=== PATIENT | male | born 1960 | race Caucasian/White ===

== ENCOUNTER 2018-06-14 10:02 | Emergency (ER) | payer BC, OTHER ==
[2018-06-14] MEDS ORDERED: BABY ASPIRIN 81 MG CHEW PO ONE (10:28)
--- NOTE | 2018-06-14 10:34 | ERPHSYRPT ---
- History of Present Illness Time Seen by Provider: 06/14/18 10:23 Historian: patient Exam Limitations: no limitations Patient Subjective Stated Complaint: HTN, tight chest on left side that radiates to the left neck Triage Nursing Assessment: Pt reports his chest began hurting last night and continues today, BP 177/111, been smoking a lot more and drinking a lot every day for the past couple of weeks, hadn't drank for the past 14 months, pt stated that he is under a lot of stress that is not work related lately, +1 edema to bilateral lower extremities, lungs clear, S1-S2 heard, tachycardic, upper left chest feels tight with some pain radiating to the left side of neck Physician History: 58-year-old white male with history of high blood pressure, hyperlipidemia. Patient arrives with complaint of pain in his left upper chest described as a pressure which began last night at 10:00. No nausea no vomiting he did have some shortness of breath last night none today. Patient apparently presented at a local clinic and was referred here he was noted to have elevated blood pressure. Past medical history includes high blood pressure hyperlipidemia patient also with arthritis. Past surgical history includes bilateral knee surgery and left hip surgery. Social history positive tobacco use, history of alcohol abuse in the past apparently states he usually didn't drink but drank about 4 beers last night. Timing/Duration: yesterday (10 PM last night) Activities at Onset: none Quality: pressure Severity of Pain-Max: moderate (3 out of 10 last night) Severity of Pain-Current: mild (1 out of 10 today) Modifying Factors: Improves With: nothing Associated Symptoms: shortness of breath (short of breath last night), No nausea , No vomiting, No palpitations, No heartburn, No abdominal pain, No cough, No hurts to breathe, No diaphoresis, No chills, No fever, No fatigue, No weakness, No swelling/lump in chest, No syncope, No rash, No headache, No dizziness, No edema, No back pain Prior Chest Pain/Cardiac Workup: no prior chest pain Nitro Today/Relief: no nitro taken today Aspirin Treatment Today: 81 mg x 4, provided by ED Allergies/Adverse Reactions: No Known Drug Allergies Allergy (Unverified 06/14/18 10:25) Home Medications: Etodolac 400 mg [Lodine 400 mg] 400 mg PO DAILY 06/14/18 [History] Lisinopril 5 mg [Zestril 5 MG] 5 mg PO DAILY 06/14/18 [History] - Review of Systems Constitutional: No Fever, No Chills Eyes: No Symptoms Ears, Nose, & Throat: No Symptoms Respiratory: Dyspnea (Short of breath last night), No Cough Cardiac: Chest Pain, No Edema, No Syncope Abdominal/Gastrointestinal: No Abdominal Pain, No Nausea, No Vomiting, No Diarrhea Genitourinary Symptoms: No Dysuria Musculoskeletal: No Back Pain, No Neck Pain Skin: No Rash Neurological: No Dizziness, No Focal Weakness, No Sensory Changes Psychological: No Symptoms Endocrine: No Symptoms All Other Systems: Reviewed and Negative - Past Medical History Pertinent Past Medical History: Yes Cardiac History: High Cholesterol, Hypertension Respiratory History: COPD Musculoskeletal History: Osteoarthritis - Past Surgical History Past Surgical History: Yes Musculoskeletal: Joint Replacement, Orthopedic Surgery Other Surgical History: Left hip replacement, bilateral knees partial replacement, left foot surgery, left elbow - Social History Smoking Status: Current every day smoker How long have you smoked: 30 years Exposure to second hand smoke: Yes Drug Use: none Patient Lives Alone: No - Nursing Vital Signs Nursing Vital Signs: Initial Vital Signs Temperature 97.8 F 06/14/18 10:05 Pulse Rate 105 H 06/14/18 10:05 Blood Pressure 177/111 06/14/18 10:05 O2 Sat by Pulse Oximetry 94 L 06/14/18 10:05 Pain Scale Pain Intensity 2 - Physical Exam General Appearance: no apparent distress, alert Eye Exam: PERRL/EOMI, eyes nml inspection Ears, Nose, Throat Exam: normal ENT inspection, moist mucous membranes Neck Exam: normal inspection, non-tender, supple, full range of motion Respiratory Exam: normal breath sounds, lungs clear, No respiratory distress Cardiovascular Exam: regular rate/rhythm, normal heart sounds, capillary refill <2 sec Gastrointestinal/Abdomen Exam: soft, No tenderness, No mass Back Exam: normal inspection, No CVA tenderness, No vertebral tenderness Extremity Exam: normal inspection, normal range of motion Neurologic Exam: alert, oriented x 3, 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, 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 Negative pulmonary Embolus. No acute cardiopulmonary abnormalities 2. Pulmonary emphysema, fibrosis/scarring, and evidence for old granulomatous disease. 3. Fatty liver.) Ordered Tests: Active Orders 24 hr Category Date Time Status [employer] [facility] STAT Care 06/14/18 10:28 Active EKG-ER Only STAT Care 06/14/18 10:28 Active IV Insertion STAT Care 06/14/18 10:28 Active Pulse Oximetry (ED) STAT Care 06/14/18 10:28 Active CHEST 1 VIEW (PORTABLE) Stat Exams 06/14/18 10:28 Completed CHEST WITH CONTRAST [CT] Stat Exams 06/14/18 11:17 Completed AMYLASE Stat Lab 06/14/18 10:30 Completed CBC W DIFF Stat Lab 06/14/18 10:30 Completed CMP Stat Lab 06/14/18 10:30 Completed D-DIMER QUANTITATION Stat Lab 06/14/18 10:30 Completed LIPASE Stat Lab 06/14/18 10:30 Completed TROPONIN Q3H Lab 06/14/18 10:30 Completed TROPONIN Q3H Lab 06/14/18 13:40 Completed TROPONIN Q3H Lab 06/14/18 16:30 Ordered TROPONIN Q3H Lab 06/14/18 19:30 Ordered TROPONIN Q3H Lab 06/14/18 22:30 Ordered Medication Summary Discontinued Medications Generic Name Dose Route Start Last Admin Trade Name Freq PRN Reason Stop Dose Admin Aspirin 324 mg 06/14/18 10:28 06/14/18 10:33 Baby Aspirin 81 Mg Chew PO 06/14/18 10:29 324 mg STAT ONE Administration Lab/Rad Data: Laboratory Result Diagrams 06/14/18 10:30 06/14/18 10:30 Laboratory Results 06/14/18 06/14/18 06/14/18 Range/Units 13:40 10:30 10:30 WBC (4.0-10.5) K/mm3 RBC (4.1-5.6) M/mm3 Hgb (12.5-18.0) gm/dl Hct (42-50) % MCV (78-100) fl MCH (26-32) pg MCHC (32-36) g/dl RDW (11.5-14.0) % Plt Count (150-450) K/mm3 MPV (6-9.5) fl Gran % (36.0-66.0) % Eos # (Auto) (0-0.5) Absolute Lymphs (auto) (1.0-4.6) Absolute Monos (auto) (0.0-1.3) Lymphocytes % (24.0-44.0) % Monocytes % (0.0-12.0) % Eosinophils % (0.00-5.0) % Basophils % (0.0-0.4) % Absolute Granulocytes (1.4-6.9) Basophils # (0-0.4) D-Dimer 609 H* (215-500) ng/mL Sodium (137-145) mmol/L Potassium (3.5-5.1) mmol/L Chloride (98-107) mmol/L Carbon Dioxide (22-30) mmol/L Anion Gap (5-15) MEQ/L BUN (9-20) mg/dL Creatinine (0.66-1.25) mg/dL Estimated GFR ML/MIN Glucose (74-106) mg/dL Calcium (8.4-10.2) mg/dL Total Bilirubin (0.2-1.3) mg/dL AST (17-59) U/L ALT (0-50) U/L Alkaline Phosphatase (38-126) U/L Troponin I < 0.012 < 0.012 (0.000-0.034) ng/mL Serum Total Protein (6.3-8.2) g/dL Albumin (3.5-5.0) g/dL Amylase (30-110) U/L Lipase (23-300) U/L 06/14/18 06/14/18 Range/Units 10:30 10:30 WBC 6.2 (4.0-10.5) K/mm3 RBC 4.74 (4.1-5.6) M/mm3 Hgb 15.7 (12.5-18.0) gm/dl Hct 46.3 (42-50) % MCV 97.7 (78-100) fl MCH 33.1 H (26-32) pg MCHC 33.9 (32-36) g/dl RDW 15.4 H (11.5-14.0) % Plt Count 216 (150-450) K/mm3 MPV 9.7 H (6-9.5) fl Gran % 61.0 (36.0-66.0) % Eos # (Auto) 0.07 (0-0.5) Absolute Lymphs (auto) 1.60 (1.0-4.6) Absolute Monos (auto) 0.71 (0.0-1.3) Lymphocytes % 25.9 (24.0-44.0) % Monocytes % 11.5 (0.0-12.0) % Eosinophils % 1.1 (0.00-5.0) % Basophils % 0.5 (0.0-0.4) % Absolute Granulocytes 3.77 (1.4-6.9) Basophils # 0.03 (0-0.4) D-Dimer (215-500) ng/mL Sodium 136 L (137-145) mmol/L Potassium 4.0 (3.5-5.1) mmol/L Chloride 102 (98-107) mmol/L Carbon Dioxide 25 (22-30) mmol/L Anion Gap 13.1 (5-15) MEQ/L BUN 9 (9-20) mg/dL Creatinine 0.70 (0.66-1.25) mg/dL Estimated GFR > 60.0 ML/MIN Glucose 106 (74-106) mg/dL Calcium 9.4 (8.4-10.2) mg/dL Total Bilirubin 1.00 (0.2-1.3) mg/dL AST 28 (17-59) U/L ALT 22 (0-50) U/L Alkaline Phosphatase 88 (38-126) U/L Troponin I (0.000-0.034) ng/mL Serum Total Protein 7.4 (6.3-8.2) g/dL Albumin 4.2 (3.5-5.0) g/dL Amylase 119 H (30-110) U/L Lipase 108 (23-300) U/L - Progress Progress: improved Air Movement: fair Progress Note: 06/14/18 10:33 58-year-old white male with history of hypercholesterolemia high blood pressure arrives with complaint of pain in his left upper chest described as a tightness or pressure began last night at 10:00 he said rated at 3 out of 10 last night 1 out of 10 tonight he states he was short of breath last night he was noted to have elevated blood pressure by the clinic. Patient arrived with a blood pressure 177/111 is now spontaneously come down to 146/95. Will go ahead and run EKG CBC CMP troponin d-dimer chest x-ray. Patient is given aspirin 324 mg orally. 06/14/18 12:36 CTA chest no evidence of pulmonary embolism, positive for fatty liver. Patient's other labs essentially normal. Will plan to repeat troponin 3 hours after last draw. Blood pressure remaining stable. 06/14/18 14:22 Patient's repeat troponin within normal limits blood pressures improved patient in no acute distress will discharge. - Departure Departure Disposition: Home Clinical Impression: Non-cardiac chest pain Condition: Fair Critical Care Time: No Referrals: VLAD XIE [Primary Care Provider] - Additional Instructions: Return home. Tylenol every 4 hours as needed for pain. Medications as prescribed by your family doctor. Follow-up with your family doctor call and make an appointment. Return for acute distress or for severe symptoms.
[2018-06-14 10:46] LABS: BASOPHIL % 0.5 % (0.0-0.4); Basophil (Absolute #) 0.03 (0-0.4); Eosinophil % 1.1 % (0.00-5.0); Eosinophil (Absolute #) 0.07 (0-0.5); Granulocyte Absolute (ANC) 3.77 (1.4-6.9); Hematocrit 46.3 % (42-50); Hemoglobin 15.7 gm/dl (12.5-18.0); Lymphocytes % 25.9 % (24.0-44.0); Mean Cell Volume 97.7 fl (78-100); Mean Corpuscular Hemoglobin 33.1 pg (26-32); Mean Corpuscular Hgb Concent. 33.9 g/dl (32-36); Mean Platelet Volume 9.7 fl (6-9.5); Monocyte (Absolute #) 0.71 (0.0-1.3); Monocytes % 11.5 % (0.0-12.0); Platelet Count 216 K/mm3 (150-450); Red Blood Count 4.74 M/mm3 (4.1-5.6); Red Cell Distribution Width 15.4 % (11.5-14.0); White Blood Count 6.2 K/mm3 (4.0-10.5)
--- NOTE | 2018-06-14 10:48 | XRAY ---
Indication: Chest pain. Comparison: April 02, 2009. Portable chest again hyperinflated and clear with incidental calcified granulomas. Heart and mediastinal structures within normal limits. Bony thorax intact again with mild degenerative changes. Impression: Stable nonacute hyperinflated chest with chronic features.
[2018-06-14 11:06] LABS: ALBUMIN 4.2 g/dL (3.5-5.0); ALKALINE PHOSPHATASE 88 U/L (38-126); AMYLASE 119 U/L (30-110); ANION GAP 13.1 MEQ/L (5-15); BLOOD UREA NITROGEN 9 mg/dL (9-20); CHLORIDE 102 mmol/L (98-107); Calcium 9.4 mg/dL (8.4-10.2); Carbon Dioxide 25 mmol/L (22-30); Glucose 106 mg/dL (74-106); LIPASE 108 U/L (23-300); SGOT/AST 28 U/L (17-59); SGPT/ALT 22 U/L (0-50); SODIUM 136 mmol/L (137-145); Total Protein 7.4 g/dL (6.3-8.2)
--- NOTE | 2018-06-14 12:31 | XRAY ---
Indication: Chest pain. Elevated d-dimer. Multiple contiguous axial images obtained through the chest using 100 cc Isovue 370 contrast and PE protocol. Comparison: None There is adequate opacification of the pulmonary arteries to include the lobar and segmental branches. No filling defect or pulmonary embolus. Heart is not enlarged. Aorta is normal in course and caliber. Tiny mediastinal/ hilar calcified nodes. No pathologic mediastinal/hilar lymphadenopathy. Examination of lung parenchyma demonstrates moderate diffuse pulmonary emphysema, minimal scattered fibrosis/scarring, mild bilateral dependent atelectasis, and left upper lobe calcified granuloma. No suspicious pulmonary mass, infiltrate, or effusion. Bony thorax intact with mild flowing osteophytes throughout the spine. Limited upper abdomen demonstrates mild diffuse fatty liver. Impression: 1. Negative pulmonary embolus. No acute cardiopulmonary abnormalities. 2. Pulmonary emphysema, fibrosis/scarring, and evidence for old granulomatous disease. 3. Fatty liver. CT DI 16.34
[2018-06-14 14:26] VITALS: BP 121/86; PULSE 75; O2SAT 97
== END 2018-06-14 14:31 | disposition home or self-care (01) ==
LOC: ED 10:02
DX: R07.89 Other chest pain (principal); I10 Essential (primary) hypertension; E78.00 Pure hypercholesterolemia, unspecified; J44.9 Chronic obstructive pulmonary disease, unspecified; M19.90 Unspecified osteoarthritis, unspecified site; K76.0 Fatty (change of) liver, not elsewhere classified
CPT/HCPCS: 36000; 36415; 71045; 71260; 80053; 82150; 83690; 84484; 85025; 85379; 93005; 93041; 99284; A9270-GY

== ENCOUNTER 2018-08-08 01:58 | Emergency (ER) | payer BC, OTHER ==
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
[2018-08-08 04:36] VITALS: BP 135/91; PULSE 85; O2SAT 95
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
== END 2018-08-08 04:43 | disposition home or self-care (01) ==
LOC: ED 01:58
DX: S20.319A Abrasion of unspecified front wall of thorax, initial encounter (principal); S60.212A Contusion of left wrist, initial encounter; V57.5XXA Driver of pick-up truck or van injured in collision with fixed or stationary object in traffic accident, initial encounter; W22.10XA Striking against or struck by unspecified automobile airbag, initial encounter; Y92.410 Unspecified street and highway as the place of occurrence of the external cause
CPT/HCPCS: 36415; 70450; 71045; 80307; 93005; 99285; G0480

== ENCOUNTER 2023-12-15 06:07 | Day surgery (SDC) | payer MEDICARE, OTHER ==
[2023-12-15 06:35] VITALS: RESP 18
[2023-12-15] MEDS: Lactated Ringers 1,000 ML IV SCH (06:45)
[2023-12-15] MEDS ORDERED: Xylocaine-Mpf 2% 5 Ml Vial ONE (08:14)
[2023-12-15] MEDS ORDERED: DIPRIVAN 200 MG/20 ML IV ONE (08:14)
[2023-12-15 08:34] VITALS: TEMP 99
[2023-12-15 08:45] VITALS: O2SAT 95
[2023-12-15 08:50] VITALS: BP 144/100; PULSE 91
--- NOTE | 2023-12-16 11:05 | OP ---
SURGERY DATE/TIME: 12/15/2023 [id number] PREOPERATIVE DIAGNOSIS: Abdominal pain and bloating. POSTOPERATIVE DIAGNOSIS: Gastritis. PROCEDURE: Esophagogastroduodenoscopy with cold forceps biopsy of the gastric antrum. SURGEON: Landon Coates MD. ANESTHESIA: Medications given by the anesthesia department. HISTORY: The patient is a 63-year-old white male who presents now for endoscopic evaluation for complaints of abdominal pain and bloating. The patient does not take any nonsteroidal medicines and reports that he is using Nexium on a regular basis. On further questioning of the patient's significant other, it is discovered the patient uses alcohol basically all day long, beer and hard liquor as well. The patient was described risks of the procedure including risk of perforation, phlebitis, untoward reaction to medication, bleeding, and missed lesions. The patient verbalized her understanding and desired to have the procedure performed. DESCRIPTION OF PROCEDURE: Patient was given medication by the anesthesia department. He had continuous pulse oximetry, ECG monitoring, and intermittent blood pressure monitoring during the examination. He was placed in the left lateral decubitus position. A bite block was placed, and a flexible Olympus gastroscope was used to intubate the oropharynx. A view of the larynx was obtained and was normal. The scope was easily introduced in the esophagus which appeared to be normal throughout its length. The stomach was entered where normal gastric rugal folds were seen. These distended nicely with insufflation of air. There was noted to be some moderate erythema through the gastric antrum. The pylorus was encountered and intubated. Duodenum was inspected and found to be normal. The scope was withdrawn towards the stomach. Retroflexed view was obtained of the lesser curvature, fundus, and cardia regions of the stomach, which appeared to be essentially normal. The scope was then redirected towards the gastric antrum where biopsies were obtained using the cold forceps biopsies of the antrum to rule out the presence of Helicobacter pylori-type organisms. The scope was then removed from the patient who tolerated the procedure well and was sent back to outpatient recovery in good condition.
== END 2023-12-15 08:55 | disposition home or self-care (01) ==
LOC: SDC 06:07
PROVIDERS: ATTEND Family Medicine
DX: K29.70 Gastritis, unspecified, without bleeding (principal); R10.9 Unspecified abdominal pain; R14.0 Abdominal distension (gaseous)
CPT/HCPCS: J2704

== ENCOUNTER 2024-05-10 04:34 | Observation (INO) | payer MEDICARE, OTHER ==
[2024-05-10] MEDS ORDERED: NITRO-BID 2% UD PACKETS ONE (05:12)
[2024-05-10] MEDS ORDERED: BABY ASPIRIN 81 MG CHEW ONE (05:12)
[2024-05-10] MEDS: NITRO-BID 2% UD PACKETS TOP ONE (05:13)
[2024-05-10] MEDS: BABY ASPIRIN 81 MG CHEW PO ONE (05:13)
--- NOTE | 2024-05-10 05:14 | ERPHSYRPT ---
- History of Present Illness Time Seen by Provider: 05/10/24 05:09 Historian: patient Exam Limitations: no limitations Patient Subjective Stated Complaint: c/o chest pain and shortness of breath Triage Nursing Assessment: patient brought into ED by with c/o chest pain and shortness of breath. patient states that the chest pain has been going on for the past couple days and has woke him up from his sleep. rates pain 4/10, Patient is 92% on RA, states he has had a cough for a few weeks, wheezing heard on inspirationa dn expiration throughout. S1 and S2 heard, skin w/n/d, hypertensive, pulses normal, gait steady, bowel sounds present in all 4 quads Physician History: 63-year-old male, smoker, history of hypertension presents to emergency department for evaluation of chest pain and shortness of breath that has been intermittent for the past 4 days. Patient states the pain wakes him from his sleep. Chest pain tends to radiate to his left arm and elbow. Symptoms are mild to moderate in intensity. No specific worsening or improving factors. Patient voices no other complaints or concerns at this time. Portions of this note were created with voice recognition technology. There may be grammatical, spelling, punctuation or sound alike errors. Timing/Duration: today Activities at Onset: none Quality: aching Location: substernal Chest Pain Radiation: arm Severity of Pain-Max: moderate Severity of Pain-Current: mild Modifying Factors: Improves With: nothing Associated Symptoms: shortness of breath Prior Chest Pain/Cardiac Workup: no prior chest pain Nitro Today/Relief: no nitro taken today Aspirin Treatment Today: no aspirin today Allergies/Adverse Reactions: atorvastatin Allergy (Mild, Verified 05/10/24 04:37) Hives metformin Allergy (Verified 05/10/24 04:37) Hives Home Medications: Carvedilol [Coreg ] 6.25 mg PO BID 12/07/23 [History] Furosemide 20 mg [Lasix 20 mg] 20 mg PO DAILY 12/07/23 [History] Losartan Potassium 50 mg [Cozaar 50 MG] 50 mg PO DAILY 12/07/23 [History] Albuterol Sulfate [Proair Respiclick] 90 mcg IH DAILY PRN PRN 05/10/24 [History] Hx Tetanus, Diphtheria Vaccination/Date Given: No Hx Influenza Vaccination/Date Given: No Hx Pneumococcal Vaccination/Date Given: No Travel Risk - International Travel Have you traveled outside of the country in past 3 weeks: No - Emerging Infectious Disease Are you exhibiting symptoms associated with any current EIDs: Yes Symptoms: Shortness of Breath - Review of Systems Constitutional: No Symptoms, No Fever, No Chills Eyes: No Symptoms Ears, Nose, & Throat: No Symptoms Respiratory: No Symptoms, No Cough, No Dyspnea Cardiac: No Symptoms, No Chest Pain, No Edema, No Syncope Abdominal/Gastrointestinal: No Symptoms, No Abdominal Pain, No Nausea, No Vomiting, No Diarrhea Genitourinary Symptoms: No Symptoms, No Dysuria Musculoskeletal: No Symptoms, No Back Pain, No Neck Pain Skin: No Symptoms, No Rash Neurological: No Symptoms, No Dizziness, No Focal Weakness, No Sensory Changes Psychological: No Symptoms Endocrine: No Symptoms Hematologic/Lymphatic: No Symptoms Immunological/Allergic: No Symptoms All Other Systems: Reviewed and Negative - Past Medical History Pertinent Past Medical History: Yes Neurological History: No Pertinent History ENT History: No Pertinent History Cardiac History: High Cholesterol, Hypertension Respiratory History: COPD Endocrine Medical History: No Pertinent History Musculoskeletal History: Osteoarthritis GI Medical History: No Pertinent History History: No Pertinent History Psycho-Social History: No Pertinent History Male Reproductive Disorders: No Pertinent History - Past Surgical History Past Surgical History: Yes Neuro Surgical History: No Pertinent History Cardiac: No Pertinent History Respiratory: No Pertinent History Gastrointestinal: No Pertinent History Genitourinary: No Pertinent History Musculoskeletal: Joint Replacement, Orthopedic Surgery Male Surgical History: No Pertinent History Other Surgical History: Left hip replacement, bilateral knees partial replacement, left foot surgery, left elbow, carpal tunnel, rotator cuff on the left - Social History Smoking Status: Current every day smoker Exposure to second hand smoke: No Drug Use: none - Social Determinants of Health Will the patient participate in the screening: Declined to provide - Nursing Vital Signs Nursing Vital Signs: Initial Vital Signs Pulse Rate 90 05/10/24 04:35 Respiratory Rate 30 H 05/10/24 04:35 Blood Pressure 156/128 05/10/24 04:35 O2 Sat by Pulse Oximetry 92 L 05/10/24 04:35 Pain Scale Pain Intensity 4 - Physical Exam General Appearance: no apparent distress, alert Eye Exam: PERRL/EOMI, eyes nml inspection Ears, Nose, Throat Exam: normal ENT inspection, moist mucous membranes Neck Exam: normal inspection, non-tender, supple, full range of motion Respiratory Exam: normal breath sounds, lungs clear, airway intact, No respiratory distress Cardiovascular Exam: regular rate/rhythm, normal heart sounds Gastrointestinal/Abdomen Exam: soft, No tenderness, No mass Back Exam: normal inspection, No CVA tenderness, No vertebral tenderness Extremity Exam: normal inspection, normal range of motion Neurologic Exam: alert, oriented x 3, cooperative, normal mood/affect, sensation nml, No motor deficits Skin Exam: normal color, warm, dry Lymphatic Exam: No adenopathy SpO2 Interpretation: normal SpO2: 92 O2 Delivery: Room Air - Course Nursing assessment & vital signs reviewed: Yes EKG Interpreted by Me: RATE (92), Sinus Rhythm, NORMAL AXIS, NORMAL INTERVALS, NORMAL QRS Ordered Tests: Active Orders 24 hr Category Date Time Status Cutter In STAT Care 05/10/24 05:08 Active EKG-ER Only STAT Care 05/10/24 04:58 Active IV Insertion STAT Care 05/10/24 04:58 Active Pulse Oximetry (ED) STAT Care 05/10/24 05:06 Active CHEST WITH CONTRAST [CT] Stat Exams 05/10/24 05:43 Taken CBC W DIFF Stat Lab 05/10/24 04:40 Completed CMP Stat Lab 05/10/24 04:40 Completed D-DIMER QUANTITATIVE Stat Lab 05/10/24 04:40 Completed NT PRO BNPII Stat Lab 05/10/24 04:40 Completed TROPONIN Q4H Lab 05/10/24 04:40 Completed TROPONIN Q4H Lab 05/10/24 09:15 Ordered TROPONIN Q4H Lab 05/10/24 13:15 Ordered UA W/RFX UR CULTURE Stat Lab 05/10/24 06:41 Ordered Medication Summary Discontinued Medications Generic Name Dose Route Start Last Admin Trade Name Freq PRN Reason Stop Dose Admin Aspirin 324 mg 05/10/24 05:08 05/10/24 05:13 Aspirin 81 Mg Tab.Chew PO 05/10/24 05:09 324 mg STAT ONE Administration Aspirin Confirm 05/10/24 05:12 Aspirin 81 Mg Tab.Chew Administered 05/10/24 05:13 Dose 324 mg .ROUTE .STK-MED ONE Nitroglycerin 1 gm 05/10/24 05:08 05/10/24 05:13 Nitroglycerin 1 Gm Packet TOP 05/10/24 05:09 1 gm STAT ONE Administration Nitroglycerin Confirm 05/10/24 05:12 Nitroglycerin 1 Gm Packet Administered 05/10/24 05:13 Dose 1 gm .ROUTE .ST-MED ONE Lab/Rad Data: Laboratory Result Diagrams 05/10/24 04:40 05/10/24 04:40 Laboratory Results 05/10/24 05/10/24 05/10/24 Range/Units 04:40 04:40 04:40 WBC (4.23-9.07) x10^3/uL RBC (4.63-6.08) x10^6/uL Hgb (13.7-17.5) g/dL Hct (40.1-51.0) % MCV (79.0-92.2) fL MCH (25.7-32.2) pg MCHC (32.3-36.5) g/dL RDW (11.6-14.4) % Plt Count (163-337) x10^3/uL MPV (9.4-12.4) fL Gran % (34.0-67.9) % Immature Gran % (Auto) (0.001-0.429) % Nucleat RBC Rel Count (0.00-0.2) % Eos # (Auto) (0.04-0.54) x10^3/uL Immature Gran # (Auto) (0.001-0.031) x10^3u/L Absolute Lymphs (auto) (1.32-3.57) x10^3/uL Absolute Monos (auto) (0.30-0.82) x10^3/uL Absolute Nucleated RBC (0.00-0.012) x10^3u/L Lymphocytes % (21.8-53.1) % Monocytes % (5.3-12.2) % Eosinophils % (0.8-7.0) % Basophils % (0.2-1.2) % Absolute Granulocytes (1.78-5.38) x10^3/uL Basophils # (0.01-0.08) x10^3/uL D-Dimer 0.80 H* (0.0-0.50) mg/L Sodium 136 (135-145) mmol/L Potassium 4.2 (3.5-5.1) mmol/L Chloride 100 (98-107) mmol/L Carbon Dioxide 29 (22-30) mmol/L Anion Gap 11.2 (5-15) MEQ/L BUN 9 (9-20) mg/dL Creatinine 0.57 L (0.66-1.25) mg/dL Estimated GFR 110.9 ML/MIN Glucose 150 H (74-106) mg/dL Calcium 8.8 (8.4-10.2) mg/dL Total Bilirubin 0.50 (0.2-1.3) mg/dL AST 39 (17-59) U/L ALT 34 (0-50) U/L Alkaline Phosphatase 68 (38-126) U/L Troponin I < 0.012 (0.000-0.033) ng/mL NT-Pro-B Natriuret Pep 173 (<300) pg/mL Serum Total Protein 7.7 (6.3-8.2) g/dL Albumin 4.1 (3.5-5.0) g/dL / Range/Units 04:40 WBC 5.7 (4.23-9.07) x10^3/uL RBC 5.14 (4.63-6.08) x10^6/uL Hgb 16.5 (13.7-17.5) g/dL Hct 49.2 (40.1-51.0) % MCV 95.7 H (79.0-92.2) fL MCH 32.1 (25.7-32.2) pg MCHC 33.5 (32.3-36.5) g/dL RDW 13.4 (11.6-14.4) % Plt Count 262 (163-337) x10^3/uL MPV 9.8 (9.4-12.4) fL Gran % 26.5 L (34.0-67.9) % Immature Gran % (Auto) 0.2 (0.001-0.429) % Nucleat RBC Rel Count 0.0 (0.00-0.2) % Eos # (Auto) 0.35 (0.04-0.54) x10^3/uL Immature Gran # (Auto) 0.01 (0.001-0.031) x10^3u/L Absolute Lymphs (auto) 3.12 (1.32-3.57) x10^3/uL Absolute Monos (auto) 0.62 (0.30-0.82) x10^3/uL Absolute Nucleated RBC 0.00 (0.00-0.012) x10^3u/L Lymphocytes % 55.0 H (21.8-53.1) % Monocytes % 10.9 (5.3-12.2) % Eosinophils % 6.2 (0.8-7.0) % Basophils % 1.2 (0.2-1.2) % Absolute Granulocytes 1.50 L (1.78-5.38) x10^3/uL Basophils # 0.07 (0.01-0.08) x10^3/uL D-Dimer (0.0-0.50) mg/L Sodium (135-145) mmol/L Potassium (3.5-5.1) mmol/L Chloride (98-107) mmol/L Carbon Dioxide (22-30) mmol/L Anion Gap (5-15) MEQ/L BUN (9-20) mg/dL Creatinine (0.66-1.25) mg/dL Estimated GFR ML/MIN Glucose (74-106) mg/dL Calcium (8.4-10.2) mg/dL Total Bilirubin (0.2-1.3) mg/dL AST (17-59) U/L ALT (0-50) U/L Alkaline Phosphatase (38-126) U/L Troponin I (0.000-0.033) ng/mL NT-Pro-B Natriuret Pep (<300) pg/mL Serum Total Protein (6.3-8.2) g/dL Albumin (3.5-5.0) g/dL - Progress Progress: improved Air Movement: good Progress Note: 63-year-old male presents to our ED for evaluation of chest pain. EKG sinus rh ythm. Distal troponin negative. D-dimer positive. CTA chest ordered results pending. Patient will require Trope #2 to be performed at 7:30 AM. It is currently the change of shift. Patient endorsed to incoming physician Dr. Alegria who will review the pending results and make final disposition. However in light of patient's cardiovascular risk factors patient should be admitted for cardiac rule out. Patient endorsed to Dr. Alegria at approximately 7 AM change of shift. Portions of this note were created with voice recognition technology. There may be grammatical, spelling, punctuation or sound alike errors Complexity of problem addressed is moderate acute complicated. No critical care time. Complex of data reviewed and analyzed is extensive. Test ordered chest reviewed results analyzed and correlated clinically with history and physical exam. Management will be discussed with hospitalist who excepts admission to observation. Risk of complication and or risk of morbidity/mortality of patient management is high. Patient will require hospitalization for further evalua tion and treatment. Vital stable. Time spent admit patient is approximately 15 minutes. Plan of care established for shared decision making. No social determinants of health present to impede follow-up. Portions of this note were created with voice recognition technology. There may be grammatical, spelling, punctuation or sound alike errors 05/10/24 07:24 Blood Culture(s) Obtained: No Antibiotics given: No Counseled pt/family regarding: lab results, diagnosis, rad results - Departure Departure Disposition: Observation Clinical Impression: Chest pain, SOB (shortness of breath) Condition: Stable Critical Care Time: No Referrals: FLORA FIGUEROA NP [Primary Care Provider] - Follow up/PCP as directed
[2024-05-10 05:16] LABS: BASOPHIL % 1.2 % (0.2-1.2); Basophil (Absolute #) 0.07 x10^3/uL (0.01-0.08); Eosinophil % 6.2 % (0.8-7.0); Eosinophil (Absolute #) 0.35 x10^3/uL (0.04-0.54); Hematocrit 49.2 % (40.1-51.0); Hemoglobin 16.5 g/dL (13.7-17.5); IMMATURE GRAN # 0.01 x10^3u/L (0.001-0.031); IMMATURE GRAN % 0.2 % (0.001-0.429); Lymphocyte (Absolute #) 3.12 x10^3/uL (1.32-3.57); Mean Cell Volume 95.7 fL (79.0-92.2); Mean Corpuscular Hemoglobin 32.1 pg (25.7-32.2); Mean Corpuscular Hgb Concent. 33.5 g/dL (32.3-36.5); Mean Platelet Volume 9.8 fL (9.4-12.4); Monocyte (Absolute #) 0.62 x10^3/uL (0.30-0.82); Monocytes % 10.9 % (5.3-12.2); Neutrophil % 26.5 % (34.0-67.9); Platelet Count 262 x10^3/uL (163-337); Red Blood Count 5.14 x10^6/uL (4.63-6.08); Red Cell Distribution Width 13.4 % (11.6-14.4); White Blood Count 5.7 x10^3/uL (4.23-9.07)
[2024-05-10 05:35] LABS: NT PRO BNPII 173 pg/mL (<300); TROPONIN < 0.012 ng/mL (0.000-0.033)
[2024-05-10 05:50] LABS: ALBUMIN 4.1 g/dL (3.5-5.0); ANION GAP 11.2 MEQ/L (5-15); BILIRUBIN,TOTAL 0.5 mg/dL (0.2-1.3); Calcium 8.8 mg/dL (8.4-10.2); Creatinine 1 0.57 mg/dL (0.66-1.25); EST GLOMERULAR FILTRATION RATE 110.9 ML/MIN; Potassium 4.2 mmol/L (3.5-5.1); Total Protein 7.7 g/dL (6.3-8.2)
--- NOTE | 2024-05-10 06:59 | XRAY ---
CLINICAL HISTORY: Pain, + dimer COMPARISON: 10:54:[address] [employer] TECHNIQUE: Contiguous axial images were obtained from the neck base through the upper abdomen following intravenous administration of contrast material. If IV contrast material had not been administered, the likelihood of detecting abnormalities relevant to the patient's condition would have been substantially decreased. In addition, sagittal and coronal reconstructions were performed. CT scan was performed according to ALARA (as low as reasonable achievable). FINDINGS: Diffuse centrilobular emphysema is noted involving both lungs. Focal nodular consolidation is noted involving apicoposterior segment of left upper lobe. Multiple clusters of tiny centrilobular nodular infiltrates with branching pattern are noted involving left lower lobe, right middle and right lower lobe Small calcified granuloma is noted in lingula. Rest of lungs are clear, The central airways are patent. There are no pleural effusions. No pneumothorax is seen. No axillary, hilar, or mediastinal adenopathy is identified. The visualized thyroid is unremarkable. The heart, aorta, and pulmonary arteries are of normal size and configuration. No pericardial effusion is identified. Imaged portions of the upper abdomen are unremarkable. No aggressive appearing osseous lesions are identified. IMPRESSION: 1. Diffuse centrilobular emphysema is noted involving both lungs.-stable. 2. Focal nodular consolidation is noted involving apicoposterior segment of left upper lobe.-new 3. Multiple clusters of tiny centrilobular nodular infiltrates with branching pattern are noted involving left lower lobe, right middle and right lower lobe- possibility of infective etiology/infectious bronchiolitis. - new finding. 4. Small calcified granuloma is noted in lingula.-stable. Electronically Signed by: Aristides Guerrero MD. (05/10/2024 06:55:28 EDT)
[2024-05-10 07:14] LABS: Appearance Clear (Clear); Bacteria None Seen /HPF (None Seen); Bilirubin Negative (Negative); Blood Negative (Negative); Epithelial Cells None Seen /HPF (None Seen); Glucose, Urine Negative (Negative); Hyaline Casts NONE SEEN /LPF (0-2); Ketones Negative (Negative); Leukocyte Esterase Negative (Negative); Nitrite Negative (Negative); Ph 5.5 (4.6-8.0); Protein,Urine Dip Negative (Negative); RBC 0-2 /HPF (0-5); Specific Gravity 1.015 (1.005-1.030); WBC 0-2 /HPF (0-5)
[2024-05-10] MEDS: ROCEPHIN 1 GM / 100 ML NaCl 1 GM/100 ML IVPB IV ONE (09:14)
[2024-05-10] MEDS ORDERED: ROCEPHIN 1 GM / 100 ML NaCl 1 GM/100 ML IVPB IV ONE (09:14)
[2024-05-10] MEDS ORDERED: TYLENOL 325 MG PO PRN (10:25)
[2024-05-10] MEDS ORDERED: Zofran 4 MG/2 ML VIAL IV PRN (10:25)
[2024-05-10] MEDS ORDERED: VENTOLIN COMMON CANISTER IH PRN (10:42)
--- NOTE | 2024-05-10 12:31 | PCM.HP ---
History of Present Illness - Chief Complaint Chief Complaint: chest pain and Shortness of breath Date: 05/10/24 History of Present Illness: is a 63-year-old male with a history of hypertension, hyperlipidemia, tobacco abuse, borderline diabetes mellitus, and chronic obstructive pulmonary disease (COPD), who presented to the ED on 05/10/24 with complaints of left-sided chest pain for the past 2-3 days. The pain is described as dull and aching, with a severity of 4/10, and is associated with shortness of breath. The patient reports a recent illness with flu-like symptoms two weeks ago, with lingering cough, and intermittent left lower quadrant abdominal pain. On arrival, he was hypertensive. An EKG showed normal sinus rhythm with no significant abnormalities. CT chest findings included stable diffuse centrilobular emphysema, new focal nodular consolidation in the left upper lobe, and multiple clusters of centrilobular nodular infiltrates in both lower lobes and right middle lobe, suggestive of an infectious etiology. Lab results revealed an elevated D-dimer, but troponin levels were normal. The patient was treated with 324 mg of aspirin, nitroglycerin, and ceftriaxone in the ED. Given the clinical presentation and imaging findings, he was admitted for further management of chest pain and suspected pneumonia. - Review of Systems Constitutional: No Symptoms Eyes: No Symptoms Ears, Nose, & Throat: No Symptoms Respiratory: Cough, Short Of Breath, Wheezing Cardiac: Chest Pain Abdominal/Gastrointestinal: Abdominal Pain (LLQ ) Genitourinary Symptoms: No Symptoms Musculoskeletal: No Symptoms Skin: No Symptoms Neurological: No Symptoms Psychological: No Symptoms Endocrine: No Symptoms Hematologic/Lymphatic: No Symptoms Immunological/Allergic: No Symptoms Medications & Allergies Home Medications: Home Medication List Carvedilol [Coreg ] 6.25 mg PO BID 12/07/23 [History Confirmed 05/10/24] Furosemide 20 mg [Lasix 20 mg] 20 mg PO DAILY 12/07/23 [History Confirmed 05/10/24] Losartan Potassium 50 mg [Cozaar 50 MG] 50 mg PO DAILY 12/07/23 [History Confirmed 05/10/24] Albuterol Sulfate [Proair Respiclick] 90 mcg IH DAILY PRN PRN 05/10/24 [History Confirmed 05/10/24] Allergies/Adverse Reactions: Allergies Allergy/AdvReac Type Severity Reaction Status Date / Time atorvastatin Allergy Mild Hives Verified 05/10/24 10:31 metformin Allergy Hives Verified 05/10/24 10:31 - Past Medical History Past Medical History: Yes Neurological History: No Pertinent History ENT History: No Pertinent History Cardiac History: High Cholesterol, Hypertension Respiratory History: COPD Endocrine Medical History: No Pertinent History Musculoskelatal History: Osteoarthritis GI Medical History: No Pertinent History History: No Pertinent History Pyscho-Social History: No Pertinent History Male Reproductive Disorders: No Pertinent History - Past Surgical History Past Surgical History: Yes Neuro Surgical History: No Pertinent History Cardiac History: No Pertinent History Respiratory Surgery: No Pertinent History GI Surgical History: No Pertinent History Genitourinary Surgical Hx: No Pertinent History Musculskeletal Surgical Hx: Joint Replacement, Orthopedic Surgery Male Surgical History: No Pertinent History Other Surgical History: Left hip replacement, bilateral knees partial replacement, left foot surgery, left elbow, carpal tunnel, rotator cuff on the left Significant Family History: diabetes, stroke - Social History Smoking Status: Current some day smoker How long have you smoked: 40 YEARS Exposure to second hand smoke: Yes Alcohol: Occasionally Drug Use: none - Social Determinants of Health Will the patient participate in the screening: Yes Do you worry about a steady place to live?: No Do you have any problems with any of the following?: No known problems In the past 12 months,have you had to go without utilities?: No Have you or anyone in your house had to go without enough: No Transportation Issues: No Has anyone in your support network made you feel unsafe?: No Does the patient want assistance with any of the above?: No - Physical Exam Vital Signs: Vital Signs - 24 hr Temp Pulse Resp BP BP Pulse Ox 05/10/24 10:38 66 18 95 05/10/24 10:36 97.4 F 67 16 128/83 94 L 05/10/24 10:00 71 16 111/84 97 05/10/24 09:45 63 16 122/78 96 05/10/24 09:30 65 11 L 139/93 05/10/24 09:15 72 17 108/87 96 05/10/24 09:00 66 15 124/82 05/10/24 08:45 67 17 117/83 95 05/10/24 08:30 68 15 120/83 95 05/10/24 08:15 67 15 113/85 95 05/10/24 08:00 69 16 127/95 95 05/10/24 07:45 88 22 119/83 95 05/10/24 07:30 71 17 112/84 94 L 05/10/24 07:28 92 L 05/10/24 07:17 71 17 123/88 97 05/10/24 06:00 85 13 120/88 96 05/10/24 05:30 87 15 131/92 95 05/10/24 05:14 91 L 05/10/24 05:01 83 27 H 162/107 94 L 05/10/24 04:38 97.4 F 92 H 23 156/128 92 L 05/10/24 04:35 90 30 H 156/128 92 L General Appearance: no apparent distress Neurologic Exam: alert, oriented x 3, cooperative Eye Exam: PERRL/EOMI Ears, Nose, Throat Exam: normal ENT inspection Neck Exam: normal inspection Respiratory Exam: diminished breath sounds, wheezing Cardiovascular Exam: regular rate/rhythm, normal heart sounds Gastrointestinal/Abdomen Exam: soft, normal bowel sounds Rectal Exam: deferred Back Exam: normal inspection Extremity Exam: normal inspection Skin Exam: normal color Results - Labs Lab/Micro Results: Lab Results-Last 24 Hours 05/10/24 05/10/24 05/10/24 Range/Units 04:40 04:40 04:40 WBC 5.7 (4.23-9.07) x10^3/uL RBC 5.14 (4.63-6.08) x10^6/uL Hgb 16.5 (13.7-17.5) g/dL Hct 49.2 (40.1-51.0) % MCV 95.7 H (79.0-92.2) fL MCH 32.1 (25.7-32.2) pg MCHC 33.5 (32.3-36.5) g/dL RDW 13.4 (11.6-14.4) % Plt Count 262 (163-337) x10^3/uL MPV 9.8 (9.4-12.4) fL Gran % 26.5 L (34.0-67.9) % Immature Gran % (Auto) 0.2 (0.001-0.429) % Nucleat RBC Rel Count 0.0 (0.00-0.2) % Eos # (Auto) 0.35 (0.04-0.54) x10^3/uL Immature Gran # (Auto) 0.01 (0.001-0.031) x10^3u/L Absolute Lymphs (auto) 3.12 (1.32-3.57) x10^3/uL Absolute Monos (auto) 0.62 (0.30-0.82) x10^3/uL Absolute Nucleated RBC 0.00 (0.00-0.012) x10^3u/L Lymphocytes % 55.0 H (21.8-53.1) % Monocytes % 10.9 (5.3-12.2) % Eosinophils % 6.2 (0.8-7.0) % Basophils % 1.2 (0.2-1.2) % Absolute Granulocytes 1.50 L (1.78-5.38) x10^3/uL Basophils # 0.07 (0.01-0.08) x10^3/uL D-Dimer (0.0-0.50) mg/L Sodium 136 (135-145) mmol/L Potassium 4.2 (3.5-5.1) mmol/L Chloride 100 (98-107) mmol/L Carbon Dioxide 29 (22-30) mmol/L Anion Gap 11.2 (5-15) MEQ/L BUN 9 (9-20) mg/dL Creatinine 0.57 L (0.66-1.25) mg/dL Estimated GFR 110.9 ML/MIN Glucose 150 H (74-106) mg/dL Calcium 8.8 (8.4-10.2) mg/dL Total Bilirubin 0.50 (0.2-1.3) mg/dL AST 39 (17-59) U/L ALT 34 (0-50) U/L Alkaline Phosphatase 68 (38-126) U/L Troponin I < 0.012 (0.000-0.033) ng/mL NT-Pro-B Natriuret Pep 173 (<300) pg/mL Serum Total Protein 7.7 (6.3-8.2) g/dL Albumin 4.1 (3.5-5.0) g/dL Urine Color (Yellow) Urine Appearance (Clear) Urine pH (4.6-8.0) Ur Specific [place] (1.005-1.030) Urine Protein (Negative) Urine Glucose (UA) (Negative) mg/dL Urine Ketones (Negative) Urine Blood (Negative) Urine Nitrite (Negative) Urine Bilirubin (Negative) Urine Urobilinogen (0.2) mg/dL Ur Leukocyte Esterase (Negative) U Hyaline Cast (Auto) (0-2) /LPF Urine Microscopic RBC (0-5) /HPF Urine Microscopic WBC (0-5) /HPF Ur Epithelial Cells (None Seen) /HPF Urine Bacteria (None Seen) /HPF Urine Culture Reflexed (NO) 05/10/24 05/10/24 05/10/24 Range/Units 04:40 06:41 07:36 WBC (4.23-9.07) x10^3/uL RBC (4.63-6.08) x10^6/uL Hgb (13.7-17.5) g/dL Hct (40.1-51.0) % MCV (79.0-92.2) fL MCH (25.7-32.2) pg MCHC (32.3-36.5) g/dL RDW (11.6-14.4) % Plt Count (163-337) x10^3/uL MPV (9.4-12.4) fL Gran % (34.0-67.9) % Immature Gran % (Auto) (0.001-0.429) % Nucleat RBC Rel Count (0.00-0.2) % Eos # (Auto) (0.04-0.54) x10^3/uL Immature Gran # (Auto) (0.001-0.031) x10^3u/L Absolute Lymphs (auto) (1.32-3.57) x10^3/uL Absolute Monos (auto) (0.30-0.82) x10^3/uL Absolute Nucleated RBC (0.00-0.012) x10^3u/L Lymphocytes % (21.8-53.1) % Monocytes % (5.3-12.2) % Eosinophils % (0.8-7.0) % Basophils % (0.2-1.2) % Absolute Granulocytes (1.78-5.38) x10^3/uL Basophils # (0.01-0.08) x10^3/uL D-Dimer 0.80 H* (0.0-0.50) mg/L Sodium (135-145) mmol/L Potassium (3.5-5.1) mmol/L Chloride (98-107) mmol/L Carbon Dioxide (22-30) mmol/L Anion Gap (5-15) MEQ/L BUN (9-20) mg/dL Creatinine (0.66-1.25) mg/dL Estimated GFR ML/MIN Glucose (74-106) mg/dL Calcium (8.4-10.2) mg/dL Total Bilirubin (0.2-1.3) mg/dL AST (17-59) U/L ALT (0-50) U/L Alkaline Phosphatase (38-126) U/L Troponin I 0.015 (0.000-0.033) ng/mL NT-Pro-B Natriuret Pep (<300) pg/mL Serum Total Protein (6.3-8.2) g/dL Albumin (3.5-5.0) g/dL Urine Color Yellow (Yellow) Urine Appearance Clear (Clear) Urine pH 5.5 (4.6-8.0) Ur Specific [place] 1.015 (1.005-1.030) Urine Protein Negative (Negative) Urine Glucose (UA) Negative (Negative) mg/dL Urine Ketones Negative (Negative) Urine Blood Negative (Negative) Urine Nitrite Negative (Negative) Urine Bilirubin Negative (Negative) Urine Urobilinogen 1.0 A (0.2) mg/dL Ur Leukocyte Esterase Negative (Negative) U Hyaline Cast (Auto) NONE SEEN (0-2) /LPF Urine Microscopic RBC 0-2 (0-5) /HPF Urine Microscopic WBC 0-2 (0-5) /HPF Ur Epithelial Cells None Seen (None Seen) /HPF Urine Bacteria None Seen (None Seen) /HPF Urine Culture Reflexed NO (NO) - Radiology Impressions Radiology Exams & Impressions: Radiology Procedures Category Date Time Status CHEST WITH CONTRAST [CT] Stat Exams 05/10/24 05:43 Completed - Other Procedures and Tests Respiratory Therapy 05/10/24 10:25 EKG REPEAT IN AM Oxygen Nasal Cannula 2 lpm 05/11/24 07:00 Respiratory Therapy Assessment DAILY Assessment/Plan (1) Pneumonia Current Visit: Yes Status: Acute Assessment & Plan: -CT chest findings included stable diffuse centrilobular emphysema, new focal nodular consolidation in the left upper lobe, and multiple clusters of centrilobular nodular infiltrates in both lower lobes and right middle lobe, suggestive of an infectious etiology -Ceftriaxone given in ED- will continue- add azithromycin -Supplemental oxygen with goal spo2 > 905 - currently on 2L- baseline RA -covid/flu/rsv testing -solumedrol 40mg bid -RT eval and follow -Nebs/INH Code(s): J18.9 - PNEUMONIA, UNSPECIFIED ORGANISM (2) Chest pain Current Visit: Yes Status: Acute Assessment & Plan: -EKG showed normal sinus rhythm with no significant abnormalities - CT chest findings included stable diffuse centrilobular emphysema, new focal nodular consolidation in the left upper lobe, and multiple clusters of centrilobular nodular infiltrates in both lower lobes and right middle lobe, suggestive of an infectious etiology -Troponins x 2 WNL - trend -repeat EKG in the a.m. -ASA 325mg/Nitro given in ED -consider cards consult if persistent Code(s): R07.9 - CHEST PAIN, UNSPECIFIED (3) HTN (hypertension) Current Visit: Yes Status: Acute Assessment & Plan: -BP stable- continue home meds Code(s): I10 - ESSENTIAL (PRIMARY) HYPERTENSION (4) HLD (hyperlipidemia) Current Visit: Yes Status: Acute Assessment & Plan: -Patient has allergy to atorvastatin - does not currently take home meds -will obtain lipid panel in the a.m. Code(s): E78.5 - HYPERLIPIDEMIA, UNSPECIFIED (5) Tobacco abuse Current Visit: Yes Status: Acute Assessment & Plan: -Advised cessation -Nicotine patch VTE: Lovenox PPI: Protonix Dispo: 1-2 days Code status: Full Code Code(s): Z72.0 - TOBACCO USE
[2024-05-10] MEDS ORDERED: NON-FORMULARY ITEM (Albuterol Sulfate [Proair Respiclick] 90 MCG Aer.Pow.Ba) IH PRN (12:33)
[2024-05-10] MEDS: Nicoderm CQ 21 MG TOP SCH (12:49)
[2024-05-10] MEDS: ZITHROMAX IV*** 500 MG in Sodium Chloride 0.9% 250 ML 250 ML IV SCH (13:13)
[2024-05-10] MEDS: PROTONIX 40 MG IV IV SCH (13:13)
[2024-05-10] MEDS: solu-MEDROL 40 MG, Sterile H2O 10 ml 1 ML IV SCH (13:14)
[2024-05-10 13:50] LABS: INFLUENZA A NEGATIVE (NEGATIVE); INFLUENZA B NEGATIVE (NEGATIVE); RESPIRATORY SYNCTIAL VIRUS NEGATIVE (NEGATIVE); SARS-CoV-2 Xpert Express NEGATIVE (NEGATIVE)
[2024-05-10] MEDS: DUONEB 0.5-3 MG/3 ml Neb IH PRN (16:30)
[2024-05-10] MEDS: Coreg PO SCH (21:50)
[2024-05-11 05:01] LABS: Hematocrit 48.1 % (40.1-51.0); Hemoglobin 15.8 g/dL (13.7-17.5); Mean Cell Volume 97.8 fL (79.0-92.2); Mean Corpuscular Hemoglobin 32.1 pg (25.7-32.2); Mean Corpuscular Hgb Concent. 32.8 g/dL (32.3-36.5); Mean Platelet Volume 9.9 fL (9.4-12.4); Platelet Count 267 x10^3/uL (163-337); Red Blood Count 4.92 x10^6/uL (4.63-6.08); Red Cell Distribution Width 13.9 % (11.6-14.4)
[2024-05-11 05:31] LABS: ALBUMIN 4.1 g/dL (3.5-5.0); ANION GAP 16.9 MEQ/L (5-15); BILIRUBIN,TOTAL 0.7 mg/dL (0.2-1.3); Calcium 8.9 mg/dL (8.4-10.2); Creatinine 1 0.55 mg/dL (0.66-1.25); EST GLOMERULAR FILTRATION RATE 112.1 ML/MIN; Potassium 4.3 mmol/L (3.5-5.1); Total Protein 7.7 g/dL (6.3-8.2)
--- NOTE | 2024-05-11 05:35 | PCM.NOTE ---
Date and Time: 05/11/24 0534 Subjective Assessment: is a 63-year-old male with a history of hypertension, hyperlipidemia, tobacco abuse, borderline diabetes mellitus, and chronic obstructive pulmonary disease (COPD), who presented to the ED on 05/10/24 with complaints of left-sided chest pain for the past 2-3 days. The pain is described as dull and aching, with a severity of 4/10, and is associated with shortness of breath. The patient reports a recent illness with flu-like symptoms two weeks ago, with lingering cough, and intermittent left lower quadrant abdominal pain. On arrival, he was hypertensive. An EKG showed normal sinus rhythm with no significant abnormalities. CT chest findings included stable diffuse centrilobular emphysema, new focal nodular consolidation in the left upper lobe, and multiple clusters of centrilobular nodular infiltrates in both lower lobes and right middle lobe, suggestive of an infectious etiology. Lab results revealed an elevated D-dimer, but troponin levels were normal. The patient was treated with 324 mg of aspirin, nitroglycerin, and ceftriaxone in the ED. Given the clinical presentation and imaging findings, he was admitted for further management of chest pain and suspected pneumonia. 05/11/24: Met with patient bedside. Continued dyspnea and cough with increased oxygen requirements up to 3L. RA at baseline. Chest pain at 1/10 on numerical pain scale today. Labs and vitals stable. Continue treatment with abx/steroids. Qualify for home oxygen. Discussed the importance of smoking cessation. Patient states he is trying. - Review of Systems Constitutional: No Symptoms Eyes: No Symptoms Ears, Nose, & Throat: No Symptoms Respiratory: Cough, Short Of Breath, Wheezing Cardiac: Chest Pain Abdominal/Gastrointestinal: No Symptoms Genitourinary Symptoms: No Symptoms Musculoskeletal: No Symptoms Skin: No Symptoms Neurological: No Symptoms Psychological: No Symptoms Endocrine: No Symptoms Hematologic/Lymphatic: No Symptoms Immunological/Allergic: No Symptoms Objective Exam General Appearance: no apparent distress Neurologic Exam: alert, oriented x 3, cooperative Skin Exam: normal color Eye Exam: PERRL Ears, Nose, Throat Exam: normal ENT inspection Neck Exam: normal inspection Respiratory Exam: diminished breath sounds, crackles/rales, wheezing Cardiovascular Exam: regular rate/rhythm, normal heart sounds Gastrointestinal/Abdomen Exam: soft, normal bowel sounds Extremity Exam: normal inspection Back Exam: normal inspection Male Genitalia Exam: deferred Rectal Exam: deferred Objective Data Vital Signs: Vital Signs - 24 hr Temp Pulse Resp BP BP BP Pulse Ox 05/11/24 03:53 97.1 F 92 H 20 143/91 90 L 05/11/24 00:00 81 16 05/10/24 20:00 97.3 F 70 16 133/82 92 L 05/10/24 18:40 70 16 94 L 05/10/24 16:31 83 18 96 05/10/24 16:00 96.5 F 67 18 143/96 93 L 05/10/24 12:00 97.9 F 70 18 123/76 96 05/10/24 10:38 66 18 95 05/10/24 10:36 97.4 F 67 16 128/83 94 L 05/10/24 10:00 71 16 111/84 97 05/10/24 09:45 63 16 122/78 96 05/10/24 09:30 65 11 L 139/93 05/10/24 09:15 72 17 108/87 96 05/10/24 09:00 66 15 124/82 05/10/24 08:45 67 17 117/83 95 05/10/24 08:30 68 15 120/83 95 05/10/24 08:15 67 15 113/85 95 05/10/24 08:00 69 16 127/95 95 05/10/24 07:45 88 22 119/83 95 05/10/24 07:30 71 17 112/84 94 L 05/10/24 07:28 92 L 05/10/24 07:17 71 17 123/88 97 05/10/24 06:00 85 13 120/88 96 Pain Assessment - Last Documented Pain Intensity 1 Intake and Output: Intake & Output 05/08/24 05/09/24 05/10/24 05/11/24 11:59 11:59 11:59 11:59 Intake Total 1510 Output Total 2575 Balance -1065 Weight 95.708 kg Lab Results: Lab Results-Last 24 Hours 05/10/24 05/10/24 05/10/24 Range/Units 04:40 04:40 04:40 WBC (4.23-9.07) x10^3/uL RBC (4.63-6.08) x10^6/uL Hgb (13.7-17.5) g/dL Hct (40.1-51.0) % MCV (79.0-92.2) fL MCH (25.7-32.2) pg MCHC (32.3-36.5) g/dL RDW (11.6-14.4) % Plt Count (163-337) x10^3/uL MPV (9.4-12.4) fL D-Dimer 0.80 H* (0.0-0.50) mg/L Sodium 136 (135-145) mmol/L Potassium 4.2 (3.5-5.1) mmol/L Chloride 100 (98-107) mmol/L Carbon Dioxide 29 (22-30) mmol/L Anion Gap 11.2 (5-15) MEQ/L BUN 9 (9-20) mg/dL Creatinine 0.57 L (0.66-1.25) mg/dL Estimated GFR 110.9 ML/MIN Glucose 150 H (74-106) mg/dL Hemoglobin A1c (4.5-6.0) % Calcium 8.8 (8.4-10.2) mg/dL Total Bilirubin 0.50 (0.2-1.3) mg/dL AST 39 (17-59) U/L ALT 34 (0-50) U/L Alkaline Phosphatase 68 (38-126) U/L Troponin I < 0.012 (0.000-0.033) ng/mL NT-Pro-B Natriuret Pep 173 (<300) pg/mL Serum Total Protein 7.7 (6.3-8.2) g/dL Albumin 4.1 (3.5-5.0) g/dL TSH 3rd Generation (0.470-4.680) mIU/L Urine Color (Yellow) Urine Appearance (Clear) Urine pH (4.6-8.0) Ur Specific [place] (1.005-1.030) Urine Protein (Negative) Urine Glucose (UA) (Negative) mg/dL Urine Ketones (Negative) Urine Blood (Negative) Urine Nitrite (Negative) Urine Bilirubin (Negative) Urine Urobilinogen (0.2) mg/dL Ur Leukocyte Esterase (Negative) U Hyaline Cast (Auto) (0-2) /LPF Urine Microscopic RBC (0-5) /HPF Urine Microscopic WBC (0-5) /HPF Ur Epithelial Cells (None Seen) /HPF Urine Bacteria (None Seen) /HPF Urine Culture Reflexed (NO) Influenza Type A Ag (NEGATIVE) Influenza Type B Ag (NEGATIVE) RSV (PCR) (NEGATIVE) SARS-CoV-2 (PCR) (NEGATIVE) 05/10/24 05/10/24 05/10/24 Range/Units 05:00 05:00 06:41 WBC (4.23-9.07) x10^3/uL RBC (4.63-6.08) x10^6/uL Hgb (13.7-17.5) g/dL Hct (40.1-51.0) % MCV (79.0-92.2) fL MCH (25.7-32.2) pg MCHC (32.3-36.5) g/dL RDW (11.6-14.4) % Plt Count (163-337) x10^3/uL MPV (9.4-12.4) fL D-Dimer (0.0-0.50) mg/L Sodium (135-145) mmol/L Potassium (3.5-5.1) mmol/L Chloride (98-107) mmol/L Carbon Dioxide (22-30) mmol/L Anion Gap (5-15) MEQ/L BUN (9-20) mg/dL Creatinine (0.66-1.25) mg/dL Estimated GFR ML/MIN Glucose (74-106) mg/dL Hemoglobin A1c 6.29 H (4.5-6.0) % Calcium (8.4-10.2) mg/dL Total Bilirubin (0.2-1.3) mg/dL AST (17-59) U/L ALT (0-50) U/L Alkaline Phosphatase (38-126) U/L Troponin I (0.000-0.033) ng/mL NT-Pro-B Natriuret Pep (<300) pg/mL Serum Total Protein (6.3-8.2) g/dL Albumin (3.5-5.0) g/dL TSH 3rd Generation 1.330 (0.470-4.680) mIU/L Urine Color Yellow (Yellow) Urine Appearance Clear (Clear) Urine pH 5.5 (4.6-8.0) Ur Specific [place] 1.015 (1.005-1.030) Urine Protein Negative (Negative) Urine Glucose (UA) Negative (Negative) mg/dL Urine Ketones Negative (Negative) Urine Blood Negative (Negative) Urine Nitrite Negative (Negative) Urine Bilirubin Negative (Negative) Urine Urobilinogen 1.0 A (0.2) mg/dL Ur Leukocyte Esterase Negative (Negative) U Hyaline Cast (Auto) NONE SEEN (0-2) /LPF Urine Microscopic RBC 0-2 (0-5) /HPF Urine Microscopic WBC 0-2 (0-5) /HPF Ur Epithelial Cells None Seen (None Seen) /HPF Urine Bacteria None Seen (None Seen) /HPF Urine Culture Reflexed NO (NO) Influenza Type A Ag (NEGATIVE) Influenza Type B Ag (NEGATIVE) RSV (PCR) (NEGATIVE) SARS-CoV-2 (PCR) (NEGATIVE) 05/10/24 05/10/24 05/10/24 Range/Units 07:36 13:05 13:05 WBC (4.23-9.07) x10^3/uL RBC (4.63-6.08) x10^6/uL Hgb (13.7-17.5) g/dL Hct (40.1-51.0) % MCV (79.0-92.2) fL MCH (25.7-32.2) pg MCHC (32.3-36.5) g/dL RDW (11.6-14.4) % Plt Count (163-337) x10^3/uL MPV (9.4-12.4) fL D-Dimer (0.0-0.50) mg/L Sodium (135-145) mmol/L Potassium (3.5-5.1) mmol/L Chloride (98-107) mmol/L Carbon Dioxide (22-30) mmol/L Anion Gap (5-15) MEQ/L BUN (9-20) mg/dL Creatinine (0.66-1.25) mg/dL Estimated GFR ML/MIN Glucose (74-106) mg/dL Hemoglobin A1c (4.5-6.0) % Calcium (8.4-10.2) mg/dL Total Bilirubin (0.2-1.3) mg/dL AST (17-59) U/L ALT (0-50) U/L Alkaline Phosphatase (38-126) U/L Troponin I 0.015 0.048 H* (0.000-0.033) ng/mL NT-Pro-B Natriuret Pep (<300) pg/mL Serum Total Protein (6.3-8.2) g/dL Albumin (3.5-5.0) g/dL TSH 3rd Generation (0.470-4.680) mIU/L Urine Color (Yellow) Urine Appearance (Clear) Urine pH (4.6-8.0) Ur Specific [place] (1.005-1.030) Urine Protein (Negative) Urine Glucose (UA) (Negative) mg/dL Urine Ketones (Negative) Urine Blood (Negative) Urine Nitrite (Negative) Urine Bilirubin (Negative) Urine Urobilinogen (0.2) mg/dL Ur Leukocyte Esterase (Negative) U Hyaline Cast (Auto) (0-2) /LPF Urine Microscopic RBC (0-5) /HPF Urine Microscopic WBC (0-5) /HPF Ur Epithelial Cells (None Seen) /HPF Urine Bacteria (None Seen) /HPF Urine Culture Reflexed (NO) Influenza Type A Ag NEGATIVE (NEGATIVE) Influenza Type B Ag NEGATIVE (NEGATIVE) RSV (PCR) NEGATIVE (NEGATIVE) SARS-CoV-2 (PCR) NEGATIVE (NEGATIVE) 05/10/24 05/11/24 05/11/24 Range/Units 16:50 04:05 04:05 WBC 7.0 (4.23-9.07) x10^3/uL RBC 4.92 (4.63-6.08) x10^6/uL Hgb 15.8 (13.7-17.5) g/dL Hct 48.1 (40.1-51.0) % MCV 97.8 H (79.0-92.2) fL MCH 32.1 (25.7-32.2) pg MCHC 32.8 (32.3-36.5) g/dL RDW 13.9 (11.6-14.4) % Plt Count 267 (163-337) x10^3/uL MPV 9.9 (9.4-12.4) fL D-Dimer (0.0-0.50) mg/L Sodium 138 (135-145) mmol/L Potassium 4.3 (3.5-5.1) mmol/L Chloride 103 (98-107) mmol/L Carbon Dioxide 22 (22-30) mmol/L Anion Gap 16.9 H (5-15) MEQ/L BUN 10 (9-20) mg/dL Creatinine 0.55 L (0.66-1.25) mg/dL Estimated GFR 112.1 ML/MIN Glucose 152 H (74-106) mg/dL Hemoglobin A1c (4.5-6.0) % Calcium 8.9 (8.4-10.2) mg/dL Total Bilirubin 0.70 (0.2-1.3) mg/dL AST 32 (17-59) U/L ALT 31 (0-50) U/L Alkaline Phosphatase 70 (38-126) U/L Troponin I 0.031 (0.000-0.033) ng/mL NT-Pro-B Natriuret Pep 289 (<300) pg/mL Serum Total Protein 7.7 (6.3-8.2) g/dL Albumin 4.1 (3.5-5.0) g/dL TSH 3rd Generation (0.470-4.680) mIU/L Urine Color (Yellow) Urine Appearance (Clear) Urine pH (4.6-8.0) Ur Specific [place] (1.005-1.030) Urine Protein (Negative) Urine Glucose (UA) (Negative) mg/dL Urine Ketones (Negative) Urine Blood (Negative) Urine Nitrite (Negative) Urine Bilirubin (Negative) Urine Urobilinogen (0.2) mg/dL Ur Leukocyte Esterase (Negative) U Hyaline Cast (Auto) (0-2) /LPF Urine Microscopic RBC (0-5) /HPF Urine Microscopic WBC (0-5) /HPF Ur Epithelial Cells (None Seen) /HPF Urine Bacteria (None Seen) /HPF Urine Culture Reflexed (NO) Influenza Type A Ag (NEGATIVE) Influenza Type B Ag (NEGATIVE) RSV (PCR) (NEGATIVE) SARS-CoV-2 (PCR) (NEGATIVE) Radiology Exams: Radiology Procedures Category Date Time Status CHEST WITH CONTRAST [CT] Stat Exams 05/10/24 05:43 Completed Assessment/Plan (1) Pneumonia Current Visit: Yes Status: Acute Assessment & Plan: -CT chest findings included stable diffuse centrilobular emphysema, new focal nodular consolidation in the left upper lobe, and multiple clusters of centrilobular nodular infiltrates in both lower lobes and right middle lobe, suggestive of an infectious etiology -Ceftriaxone given in ED- will continue- add azithromycin -Supplemental oxygen with goal spo2 > 905 - currently on 2L- baseline RA -covid/flu/rsv testing -solumedrol 40mg bid -RT eval and follow -Nebs/INH 05/11: -WBC reviewed and WNL -Continue steroid/abx -Respiratory viral panel negative Code(s): J18.9 - PNEUMONIA, UNSPECIFIED ORGANISM (2) Chest pain Current Visit: Yes Status: Acute Assessment & Plan: -EKG showed normal sinus rhythm with no significant abnormalities - CT chest findings included stable diffuse centrilobular emphysema, new focal nodular consolidation in the left upper lobe, and multiple clusters of centrilobular nodular infiltrates in both lower lobes and right middle lobe, suggestive of an infectious etiology -Troponins x 2 WNL - trend -repeat EKG in the a.m. -ASA 325mg/Nitro given in ED -consider cards consult if persistent 05/11: -Trops WNL on repeat -Most likely secondary to pneumonia Code(s): R07.9 - CHEST PAIN, UNSPECIFIED (3) HTN (hypertension) Current Visit: Yes Status: Acute Assessment & Plan: -BP stable- continue home meds Code(s): I10 - ESSENTIAL (PRIMARY) HYPERTENSION (4) HLD (hyperlipidemia) Current Visit: Yes Status: Acute Assessment & Plan: -Patient has allergy to atorvastatin - does not currently take home meds -will obtain lipid panel in the a.m. Code(s): E78.5 - HYPERLIPIDEMIA, UNSPECIFIED (5) Tobacco abuse Current Visit: Yes Status: Acute Assessment & Plan: -Advised cessation -Nicotine patch VTE: Lovenox PPI: Protonix Dispo: 1-2 days Code status: Full Code Code(s): J18.9 - PNEUMONIA, UNSPECIFIED ORGANISM (2) Chest pain Current Visit: Yes Status: Acute Code(s): R07.9 - CHEST PAIN, UNSPECIFIED (3) HTN (hypertension) Current Visit: Yes Status: Acute Code(s): I10 - ESSENTIAL (PRIMARY) HYPERTENSION (4) HLD (hyperlipidemia) Current Visit: Yes Status: Acute Code(s): E78.5 - HYPERLIPIDEMIA, UNSPECIFIED (5) Tobacco abuse Current Visit: Yes Status: Acute Code(s): Z72.0 - TOBACCO USE
[2024-05-11 07:33] LABS: BAND 2 % (0.0-2.0); Lymphocytes 20 % (21.8-53.1); Monocyte 1 % (5.3-12.2); Neutrophils 77 % (34.0-67.9); Platelet Estimate NORMAL (NORMAL); Total Cells Counted 100
[2024-05-11] MEDS: Cozaar 50 MG PO SCH (09:05)
[2024-05-11] MEDS: LASIX 20 MG PO SCH (09:05)
[2024-05-11] MEDS: ENOXAPARIN SODIUM SQ SCH (09:06)
[2024-05-11] MEDS: ROCEPHIN 1 GM / 100 ML NaCl 1 GM/100 ML IVPB IV SCH (09:06)
[2024-05-12 04:46] LABS: Hematocrit 45.2 % (40.1-51.0); Hemoglobin 15.1 g/dL (13.7-17.5); Mean Cell Volume 97.2 fL (79.0-92.2); Mean Corpuscular Hemoglobin 32.5 pg (25.7-32.2); Mean Corpuscular Hgb Concent. 33.4 g/dL (32.3-36.5); Platelet Count 264 x10^3/uL (163-337); Red Blood Count 4.65 x10^6/uL (4.63-6.08); Red Cell Distribution Width 14.2 % (11.6-14.4); White Blood Count 9.2 x10^3/uL (4.23-9.07)
[2024-05-12 05:05] LABS: ANION GAP 13.3 MEQ/L (5-15); Calcium 8.8 mg/dL (8.4-10.2); Creatinine 1 0.68 mg/dL (0.66-1.25); EST GLOMERULAR FILTRATION RATE 105.1 ML/MIN; Potassium 4.2 mmol/L (3.5-5.1)
[2024-05-12 05:15] VITALS: RESP 16
--- NOTE | 2024-05-12 05:56 | PCM.NOTE ---
Date and Time: 05/12/24 0555 Subjective Assessment: is a 63-year-old male with a history of hypertension, hyperlipidemia, tobacco abuse, borderline diabetes mellitus, and chronic obstructive pulmonary disease (COPD), who presented to the ED on 05/10/24 with complaints of left-sided chest pain for the past 2-3 days. The pain is described as dull and aching, with a severity of 4/10, and is associated with shortness of breath. The patient reports a recent illness with flu-like symptoms two weeks ago, with lingering cough, and intermittent left lower quadrant abdominal pain. On arrival, he was hypertensive. An EKG showed normal sinus rhythm with no significant abnormalities. CT chest findings included stable diffuse centrilobular emphysema, new focal nodular consolidation in the left upper lobe, and multiple clusters of centrilobular nodular infiltrates in both lower lobes and right middle lobe, suggestive of an infectious etiology. Lab results revealed an elevated D-dimer, but troponin levels were normal. The patient was treated with 324 mg of aspirin, nitroglycerin, and ceftriaxone in the ED. Given the clinical presentation and imaging findings, he was admitted for further management of chest pain and suspected pneumonia. 05/11/24: Met with patient bedside. Continued dyspnea and cough with increased oxygen requirements up to 3L. RA at baseline. Chest pain at 1/10 on numerical pain scale today. Labs and vitals stable. Continue treatment with abx/steroids. Qualify for home oxygen. Discussed the importance of smoking cessation. Patient states he is trying. Objective Data Vital Signs: Vital Signs - 24 hr Temp Pulse Resp BP Pulse Ox 05/12/24 05:14 66 16 94 L 05/12/24 04:00 97.3 F 71 18 135/85 93 L 05/12/24 00:00 97.5 F 66 18 133/79 94 L 05/11/24 19:25 98.4 F 70 20 136/76 94 L 05/11/24 17:33 82 18 95 05/11/24 16:00 97.8 F 74 20 112/67 94 L 05/11/24 11:49 97.5 F 72 20 134/78 92 L 05/11/24 08:00 97.4 F 79 20 118/82 91 L Pain Assessment - Last Documented Pain Intensity 3 Intake and Output: Intake & Output 05/09/24 05/10/24 05/11/24 05/12/24 11:59 11:59 11:59 11:59 Intake Total 1430 6305 Output Total 5581 4373 Balance -1165 -1585 Weight 95.708 kg 96.5 kg Lab Results: Lab Results-Last 24 Hours 05/11/24 05/12/24 05/12/24 Range/Units 04:05 04:25 04:25 WBC 9.2 H (4.23-9.07) x10^3/uL RBC 4.65 (4.63-6.08) x10^6/uL Hgb 15.1 (13.7-17.5) g/dL Hct 45.2 (40.1-51.0) % MCV 97.2 H (79.0-92.2) fL MCH 32.5 H (25.7-32.2) pg MCHC 33.4 (32.3-36.5) g/dL RDW 14.2 (11.6-14.4) % Plt Count 264 (163-337) x10^3/uL MPV 10.0 (9.4-12.4) fL Segmented Neutrophils 77 H (34.0-67.9) % Band Neutrophils 2 (0.0-2.0) % Lymphocytes (Manual) 20 L (21.8-53.1) % Monocytes (Manual) 1 L (5.3-12.2) % Platelet Estimate NORMAL (NORMAL) RBC Morphology NORMAL Sodium 138 (135-145) mmol/L Potassium 4.2 (3.5-5.1) mmol/L Chloride 104 (98-107) mmol/L Carbon Dioxide 25 (22-30) mmol/L Anion Gap 13.3 (5-15) MEQ/L BUN 17 (9-20) mg/dL Creatinine 0.68 (0.66-1.25) mg/dL Estimated GFR 105.1 ML/MIN Glucose 177 H (74-106) mg/dL Calcium 8.8 (8.4-10.2) mg/dL Radiology Exams: Radiology Procedures Category Date Time Status CHEST WITH CONTRAST [CT] Stat Exams 05/10/24 05:43 Completed Multi-Disciplinary Progress Notes: Multi-Disciplinary Progress Notes 05/11/24 10:32 Case Management Note by Lyric Bernardo S/W PATIENT- HE CONTINUES TO DENY ANY NEW NEEDS REGARDING DC AT THIS TIME. HE PLANS TO RETURN HOME TO HIS PLF. PATIENT MAY NEED O2 AT DC- WILL NEED ASSESSED AT TIME OF DC Initialized on 05/11/24 10:32 - END OF NOTE Assessment/Plan (1) Pneumonia Current Visit: Yes Status: Acute Assessment & Plan: -CT chest findings included stable diffuse centrilobular emphysema, new focal nodular consolidation in the left upper lobe, and multiple clusters of centrilobular nodular infiltrates in both lower lobes and right middle lobe, suggestive of an infectious etiology -Ceftriaxone given in ED- will continue- add azithromycin -Supplemental oxygen with goal spo2 > 905 - currently on 2L- baseline RA -covid/flu/rsv testing -solumedrol 40mg bid -RT eval and follow -Nebs/INH 05/11: -WBC reviewed and WNL -Continue steroid/abx -Respiratory viral panel negative Code(s): J18.9 - PNEUMONIA, UNSPECIFIED ORGANISM (2) Chest pain Current Visit: Yes Status: Acute Assessment & Plan: -EKG showed normal sinus rhythm with no significant abnormalities - CT chest findings included stable diffuse centrilobular emphysema, new focal nodular consolidation in the left upper lobe, and multiple clusters of centrilobular nodular infiltrates in both lower lobes and right middle lobe, suggestive of an infectious etiology -Troponins x 2 WNL - trend -repeat EKG in the a.m. -ASA 325mg/Nitro given in ED -consider cards consult if persistent 05/11: -Trops WNL on repeat -Most likely secondary to pneumonia Code(s): R07.9 - CHEST PAIN, UNSPECIFIED (3) HTN (hypertension) Current Visit: Yes Status: Acute Assessment & Plan: -BP stable- continue home meds Code(s): I10 - ESSENTIAL (PRIMARY) HYPERTENSION (4) HLD (hyperlipidemia) Current Visit: Yes Status: Acute Assessment & Plan: -Patient has allergy to atorvastatin - does not currently take home meds -will obtain lipid panel in the a.m. Code(s): E78.5 - HYPERLIPIDEMIA, UNSPECIFIED (5) Tobacco abuse Current Visit: Yes Status: Acute Assessment & Plan: -Advised cessation -Nicotine patch VTE: Lovenox PPI: Protonix Dispo: 1-2 days Code status: Full Code Code(s): J18.9 - PNEUMONIA, UNSPECIFIED ORGANISM Code(s): J18.9 - PNEUMONIA, UNSPECIFIED ORGANISM (2) Chest pain Current Visit: Yes Status: Acute Code(s): R07.9 - CHEST PAIN, UNSPECIFIED (3) HTN (hypertension) Current Visit: Yes Status: Acute Code(s): I10 - ESSENTIAL (PRIMARY) HYPERTENSION (4) HLD (hyperlipidemia) Current Visit: Yes Status: Acute Code(s): E78.5 - HYPERLIPIDEMIA, UNSPECIFIED (5) Tobacco abuse Current Visit: Yes Status: Acute Code(s): Z72.0 - TOBACCO USE
--- NOTE | 2024-05-12 11:39 | PCM.DS ---
Discharge Summary Date of Admission: 05/10/24 10:23 Date of Discharge: 05/12/24 Admitting Physician: STEPHEN PONCE MD Primary Care Provider: FLORA FIGUEROA Allergies Allergies atorvastatin Allergy (Mild, Verified 05/10/24 10:31) [facility] metformin Allergy (Verified 05/10/24 10:31) [facility] Summary - Hospital Course Hospital Course: Mr. Wilson is a 63-year-old male with a history of hypertension, hyperlipidemia, tobacco use, borderline diabetes, and COPD, who presented to ED 05/10/24 with 2-3 days of left-sided chest pain and shortness of breath, along with a recent flu- like illness and persistent cough. Imaging revealed stable emphysema, new focal consolidation in the left upper lobe, and nodular infiltrates in multiple lung lobes, suggesting pneumonia. Elevated D-dimer and normal troponin levels indicated an infectious process rather than cardiac etiology. He was treated with ceftriaxone, azithromycin, aspirin, and nitroglycerin in the ED and admitted for further management. Patient has demonstrated improvement with minimal chest pain (03/04) and stable labs/vitals. He does qualify for home oxygen at 2L. His respiratory viral panel was negative. IP treatment included antibiotics, steroids, and oxygen therapy, with smoking cessation counseling and nicotine patch initiation. Patient reports he is ready to quit. The patient was deemed stable for discharge with appropriate follow-up for pneumonia and cardiology evaluation. He will discharge home on oxygen, cefuroxime, medrol dose pack, and protonix. Discharge Note New Diagnosis: Pneumonia New Medications: Cefuroxime/medrol dose pack/protonix/duonebs/nebulizer machine Follow Up: PCP/cards/Pulm I spent 35 minutes [id number] with the patient on the day of discharge performing discharge exam, discussing hospital stay and discharge instructions with patient and caregivers, preparation of discharge records, prescriptions & referral forms and addressing any questions/concerns the patient had as documented above. - Vitals & Intake/Output Vital Signs: Vital Signs Temperature 97.9 F 05/12/24 07:32 Pulse Rate 71 05/12/24 07:32 Respiratory Rate 16 05/12/24 07:32 Blood Pressure 115/79 05/12/24 07:32 O2 Sat by Pulse Oximetry 93 L 05/12/24 07:32 Intake & Output: Intake & Output 05/09/24 05/10/24 05/11/2420/25 11:59 11:59 11:59 11:59 Intake Total 0020 7816 Output Total 5008 5160 Balance -1165 -2035 Weight 95.708 kg 96.5 kg 95.6 kg - Lab Result Diagrams: 05/12/24 04:25 05/12/24 04:25 Lab Results-Last 24 Hrs: Lab Results-Last 24 Hours 05/12/24 05/12/24 Range/Units 04:25 04:25 WBC 9.2 H (4.23-9.07) x10^3/uL RBC 4.65 (4.63-6.08) x10^6/uL Hgb 15.1 (13.7-17.5) g/dL Hct 45.2 (40.1-51.0) % MCV 97.2 H (79.0-92.2) fL MCH 32.5 H (25.7-32.2) pg MCHC 33.4 (32.3-36.5) g/dL RDW 14.2 (11.6-14.4) % Plt Count 264 (163-337) x10^3/uL MPV 10.0 (9.4-12.4) fL Sodium 138 (135-145) mmol/L Potassium 4.2 (3.5-5.1) mmol/L Chloride 104 (98-107) mmol/L Carbon Dioxide 25 (22-30) mmol/L Anion Gap 13.3 (5-15) MEQ/L BUN 17 (9-20) mg/dL Creatinine 0.68 (0.66-1.25) mg/dL Estimated GFR 105.1 ML/MIN Glucose 177 H (74-106) mg/dL Calcium 8.8 (8.4-10.2) mg/dL - Procedures and Test Procedures and Tests throughout Hospitalization: Therapy Orders & Screens 05/10/24 10:25 EKG REPEAT IN AM Comment: Oxygen Nasal Cannula 2 lpm Comment: Respiratory Therapy Consult ONCE Comment: Reason For Exam: 05/10/24 10:47 Smoking Cessation Education ONCE Comment: Diagnosis: chest pain and Shortness of breath Smoking Status: Current some day smoker How long have you smoked: 40 YEARS Approximately how many cigarettes per day: 1 1/2 ppd Do you dip or chew tobacco: No 05/10/24 12:36 Respiratory Therapy Consult ONCE Comment: Reason For Exam: Diagnosis: chest pain and Shortness of breath 05/10/24 14:13 EKG ROUTINE Comment: Diagnosis: chest pain and Shortness of breath EKG Reason: Chest Pain 05/11/24 07:00 Respiratory Therapy Assessment DAILY Comment: 05/12/24 07:23 Qualify for Home Oxygen TODAY Comment: Diagnosis: chest pain and Shortness of breath Discharge Exam General Appearance: no apparent distress Neurologic Exam: alert, oriented x 3, cooperative Eye Exam: PERRL Ears, Nose, Throat Exam: normal ENT inspection Neck Exam: normal inspection Respiratory Exam: diminished breath sounds, wheezing Cardiovascular Exam: regular rate/rhythm, normal heart sounds Gastrointestinal/Abdomen Exam: soft, normal bowel sounds Male Genitalia Exam: deferred Rectal Exam: deferred Back Exam: normal inspection Extremity Exam: normal inspection Skin Exam: normal color Final Diagnosis/Problem List - Final Discharge Diagnosis/Problem (1) Pneumonia Current Visit: Yes Status: Acute Code(s): J18.9 - PNEUMONIA, UNSPECIFIED ORGANISM (2) Chest pain Current Visit: Yes Status: Resolved Code(s): R07.9 - CHEST PAIN, UNSPECIFIED (3) HTN (hypertension) Current Visit: Yes Status: Chronic Code(s): I10 - ESSENTIAL (PRIMARY) HYPERTENSION (4) HLD (hyperlipidemia) Current Visit: Yes Status: Chronic Code(s): E78.5 - HYPERLIPIDEMIA, UNSPECIFIED (5) Tobacco abuse Current Visit: Yes Status: Chronic Code(s): Z72.0 - TOBACCO USE - Discharge Discharge Date: 05/12/24 Disposition: Home, Self-Care Condition: Stable Prescriptions: New cefuroxime axetiL [Cefuroxime] 500 mg PO BID 10 Days #20 tablet Albuterol/Ipratropium 3ml Neb* [DUONEB 0.5-3 MG/3 ml Neb] 3 ml IH Q4HPRN PRN 30 Days #120 amp PRN Reason: Shortness Of Breath/Wheezing Methylprednisolone Packet [Medrol Dosepack] 4 mg PO UD #1 packet PANTOPRAZOLE 40 mg Tablet [Protonix 40MG Tablet] 40 mg PO QAM 30 Days #30 tab Continue Losartan Potassium 50 mg [Cozaar 50 MG] 50 mg PO DAILY Carvedilol [Coreg ] 6.25 mg PO BID Furosemide 20 mg [Lasix 20 mg] 20 mg PO DAILY Albuterol Sulfate [Proair Respiclick] 90 mcg IH DAILY PRN PRN PRN Reason: Shortness Of Breath/Wheezing Instructions: Oxygen therapy at home, Chest pain - Discharge instructions Additional Instructions: WEAR 2L/NC AT ALL TIMES, ESPECIALLY WHEN WALKING OR WITH ACTIVITY CALL [facility] AT [phone] WHEN YOU LEAVE [facility] SO THEY CAN DELIVER YOUR HOME CONCENTRATOR NEBULIZER ORDERED THRU [facility] AND WILL BE DELIVERED WITH YOUR HOME OXYGEN Follow up with: FLORA FIGUEROA NP [Primary Care Provider] - 05/18/24 9:00 am NATALIE FENTON PA [NON-STAFF PHY W/O PRIVILEGES] - 05/20/24 11:30 am (N.P. FOR ) Forms: Discharge Instructions
[2024-05-12 11:57] VITALS: BP 114/66; PULSE 63; TEMP 97.6; O2SAT 94
== END 2024-05-12 12:55 | disposition home or self-care (01) ==
LOC: ED 04:34 → MED SURG 10:23
PROVIDERS: ADMIT Internal Medicine; ATTEND Internal Medicine
DX: J18.9 Pneumonia, unspecified organism (principal); R07.9 Chest pain, unspecified; I10 Essential (primary) hypertension; E78.5 Hyperlipidemia, unspecified; R73.03 Prediabetes; J44.9 Chronic obstructive pulmonary disease, unspecified; Z72.0 Tobacco use; Z79.899 Other long term (current) drug therapy
CPT/HCPCS: 0241U; 36415; 71260; 80048; 80053; 81001; 83036; 83880; 84443; 84484; 85025; 85027; 85379; 93005; 93041; 94640; 94760; 99285; Q3014; 93268; J0456; J0696; J1650; J2919; A9270-GY; G0378

== ENCOUNTER 2024-05-13 00:27 | Emergency (ER) | payer MEDICARE, OTHER ==
[2024-05-13 00:40] VITALS: TEMP 96.9
[2024-05-13] MEDS ORDERED: BABY ASPIRIN 81 MG CHEW ONE (01:07)
[2024-05-13] MEDS: BABY ASPIRIN 81 MG CHEW PO ONE (01:08)
--- NOTE | 2024-05-13 01:09 | ERPHSYRPT ---
- History of Present Illness Time Seen by Provider: 05/13/24 00:42 Historian: patient, family Exam Limitations: no limitations Patient Subjective Stated Complaint: c/o chest pain Triage Nursing Assessment: patient brought to ED by with c/o chest pain that is 10/10 and radiates down left arm. patient was discharged from the hospital yesterday with diagnoses of pneumonia. patient was sent home yesterday woth an oxygen tank and wears 2 Liters at home. lung sounds clear on right upper and lower lobe. patient has slight wheezing heard on left upper lobe. skin w/n/d, hypertensive, afebrile, denies feeling SOB. Physician History: 63 years old male with history of tobacco use/COPD/hypertension/hyperlipidemia who was recently admitted for bilateral/multifocal pneumonia, discharged yesterday afternoon resented back with left-sided chest pain 10/10 intensity with some radiation to the left arm. Patient reports pain similar to last time when he was in the ER, diagnosed with pneumonia. He took Tylenol, pain started to ease up and currently is pain-free. Denies any increased difficulty breathing than what he has at baseline and on 2 L oxygen which he sent home oxygen saturation is 97%. Denies any chest pressure or tightness. No history of coronary artery disease. Aspirin Treatment Today: unknown Allergies/Adverse Reactions: atorvastatin Allergy (Mild, Verified 05/10/24 10:31) Hives metformin Allergy (Verified 05/10/24 10:31) Hives Home Medications: Carvedilol [Coreg ] 6.25 mg PO BID 12/07/23 [History] Furosemide 20 mg [Lasix 20 mg] 20 mg PO DAILY 12/07/23 [History] Losartan Potassium 50 mg [Cozaar 50 MG] 50 mg PO DAILY 12/07/23 [History] Albuterol Sulfate [Proair Respiclick] 90 mcg IH DAILY PRN PRN 05/10/24 [History] Hx Tetanus, Diphtheria Vaccination/Date Given: No Hx Influenza Vaccination/Date Given: No Hx Pneumococcal Vaccination/Date Given: No Travel Risk - International Travel Have you traveled outside of the country in past 3 weeks: No - Emerging Infectious Disease Are you exhibiting symptoms associated with any current EIDs: No Symptoms: Shortness of Breath - Review of Systems Constitutional: No Symptoms Eyes: No Symptoms Ears, Nose, & Throat: No Symptoms Respiratory: Cough Cardiac: Chest Pain Abdominal/Gastrointestinal: No Symptoms Genitourinary Symptoms: No Symptoms Musculoskeletal: Arthralgias Neurological: No Symptoms Psychological: No Symptoms Hematologic/Lymphatic: No Symptoms Immunological/Allergic: No Symptoms - Past Medical History Pertinent Past Medical History: Yes Neurological History: No Pertinent History ENT History: No Pertinent History Cardiac History: High Cholesterol, Hypertension Respiratory History: COPD Endocrine Medical History: No Pertinent History Musculoskeletal History: Osteoarthritis GI Medical History: No Pertinent History History: No Pertinent History Psycho-Social History: No Pertinent History Male Reproductive Disorders: No Pertinent History - Past Surgical History Past Surgical History: Yes Neuro Surgical History: No Pertinent History Cardiac: No Pertinent History Respiratory: No Pertinent History Gastrointestinal: No Pertinent History Genitourinary: No Pertinent History Musculoskeletal: Joint Replacement, Orthopedic Surgery Male Surgical History: No Pertinent History Other Surgical History: Left hip replacement, bilateral knees partial replacement, left foot surgery, left elbow, carpal tunnel, rotator cuff on the left Significant Family History: diabetes, stroke - Social History Smoking Status: Current some day smoker How long have you smoked: 40 YEARS Exposure to second hand smoke: Yes Drug Use: none - Social Determinants of Health Will the patient participate in the screening: Yes Do you worry about a steady place to live?: No Do you have any problems with any of the following?: No known problems In the past 12 months,have you had to go without utilities?: No Transportation Issues: No Has anyone in your support network made you feel unsafe?: No Have you or anyone in your house had to go w/o enough food: No - Nursing Vital Signs Nursing Vital Signs: Initial Vital Signs Temperature 96.9 F 05/13/24 00:28 Pulse Rate 76 05/13/24 00:28 Respiratory Rate 20 05/13/24 00:28 Blood Pressure 174/111 05/13/24 00:28 O2 Sat by Pulse Oximetry 96 05/13/24 00:28 Pain Scale Pain Intensity 0 - Physical Exam General Appearance: no apparent distress, alert Eye Exam: PERRL/EOMI Ears, Nose, Throat Exam: normal ENT inspection Neck Exam: normal inspection, non-tender, supple, full range of motion Respiratory Exam: diminished breath sounds, rhonchi, wheezing Cardiovascular Exam: regular rate/rhythm, normal heart sounds Gastrointestinal/Abdomen Exam: soft, normal bowel sounds, No tenderness Back Exam: normal inspection, normal range of motion Extremity Exam: normal inspection, normal range of motion Neurologic Exam: alert, oriented x 3, cooperative Skin Exam: normal color SpO2 Interpretation: normal SpO2: 96 O2 Delivery: Room Air - Course EKG Interpreted by Me: RATE (64), Sinus Rhythm, NORMAL AXIS, NORMAL INTERVALS, Non-specific ST Changes, Other (Unspecific T wave changes) Ordered Tests: Active Orders 24 hr Category Date Time Status EKG-ER Only STAT Care 05/13/24 01:04 Completed IV Insertion STAT Care 05/13/24 01:04 Completed CHEST 1 VIEW (PORTABLE) Stat Exams 05/13/24 01:19 Taken CBC W DIFF Stat Lab 05/13/24 01:07 Completed CMP Stat Lab 05/13/24 01:07 Completed Lactic Acid Stat Lab 05/13/24 01:04 Completed MAGNESIUM Stat Lab 05/13/24 01:07 Completed NT PRO BNPII Stat Lab 05/13/24 01:07 Completed TROPONIN Q4H Lab 05/13/24 01:07 Completed TROPONIN Q4H Lab 05/13/24 04:08 Completed Respiratory Therapy Assessment DAILY RT 05/13/24 01:26 Completed Medication Summary Discontinued Medications Generic Name Dose Route Start Last Admin Trade Name Freq PRN Reason Stop Dose Admin Albuterol/Ipratropium 3 ml 05/13/24 01:09 05/13/24 01:23 Ipratropium/Albuterol Sulfate 3 Ml Ampul.Neb IH 05/13/24 01:10 3 ml STAT ONE Administration Albuterol/Ipratropium Confirm 05/13/24 01:19 Ipratropium/Albuterol Sulfate 3 Ml Ampul.Neb Administered 05/13/24 01:20 Dose 3 ml IH .STK-MED ONE Aspirin 324 mg 05/13/24 01:04 05/13/24 01:08 Aspirin 81 Mg Tab.Chew PO 05/13/24 01:05 324 mg STAT ONE Administration Aspirin Confirm 05/13/24 01:07 Aspirin 81 Mg Tab.Chew Administered 05/13/24 01:08 Dose 324 mg .ROUTE .STK-MED ONE Lab/Rad Data: Laboratory Result Diagrams 05/13/24 01:07 05/13/24 01:07 Laboratory Results 03/21/25 03/21/25 03/21/25 Range/Units 04:08 01:07 01:07 WBC (4.23-9.07) x10^3/uL RBC (4.63-6.08) x10^6/uL Hgb (13.7-17.5) g/dL Hct (40.1-51.0) % MCV (79.0-92.2) fL MCH (25.7-32.2) pg MCHC (32.3-36.5) g/dL RDW (11.6-14.4) % Plt Count (163-337) x10^3/uL MPV (9.4-12.4) fL Gran % (34.0-67.9) % Immature Gran % (Auto) (0.001-0.429) % Nucleat RBC Rel Count (0.00-0.2) % Eos # (Auto) (0.04-0.54) x10^3/uL Immature Gran # (Auto) (0.001-0.031) x10^3u/L Absolute Lymphs (auto) (1.32-3.57) x10^3/uL Absolute Monos (auto) (0.30-0.82) x10^3/uL Absolute Nucleated RBC (0.00-0.012) x10^3u/L Lymphocytes % (21.8-53.1) % Monocytes % (5.3-12.2) % Eosinophils % (0.8-7.0) % Basophils % (0.2-1.2) % Absolute Granulocytes (1.78-5.38) x10^3/uL Basophils # (0.01-0.08) x10^3/uL Sodium 135 (135-145) mmol/L Potassium 4.1 (3.5-5.1) mmol/L Chloride 103 (98-107) mmol/L Carbon Dioxide 25 (22-30) mmol/L Anion Gap 12.4 (5-15) MEQ/L BUN 14 (9-20) mg/dL Creatinine 0.63 L (0.66-1.25) mg/dL Estimated GFR 107.6 ML/MIN Glucose 125 H (74-106) mg/dL Lactic Acid (0.4-2.0) Calcium 9.1 (8.4-10.2) mg/dL Magnesium 2.2 (1.6-2.3) mg/dL Total Bilirubin 0.50 (0.2-1.3) mg/dL AST 33 (17-59) U/L ALT 31 (0-50) U/L Alkaline Phosphatase 63 (38-126) U/L Troponin I < 0.012 < 0.012 (0.000-0.033) ng/mL NT-Pro-B Natriuret Pep 426 (<300) pg/mL Serum Total Protein 7.5 (6.3-8.2) g/dL Albumin 4.2 (3.5-5.0) g/dL 05/13/24 05/13/24 Range/Units 01:07 01:04 WBC 11.2 H (4.23-9.07) x10^3/uL RBC 4.66 (4.63-6.08) x10^6/uL Hgb 15.6 (13.7-17.5) g/dL Hct 44.6 (40.1-51.0) % MCV 95.7 H (79.0-92.2) fL MCH 33.5 H (25.7-32.2) pg MCHC 35.0 (32.3-36.5) g/dL RDW 14.2 (11.6-14.4) % Plt Count 243 (163-337) x10^3/uL MPV 9.9 (9.4-12.4) fL Gran % 62.0 (34.0-67.9) % Immature Gran % (Auto) 0.3 (0.001-0.429) % Nucleat RBC Rel Count 0.0 (0.00-0.2) % Eos # (Auto) 0.01 L (0.04-0.54) x10^3/uL Immature Gran # (Auto) 0.03 (0.001-0.031) x10^3u/L Absolute Lymphs (auto) 3.48 (1.32-3.57) x10^3/uL Absolute Monos (auto) 0.69 (0.30-0.82) x10^3/uL Absolute Nucleated RBC 0.00 (0.00-0.012) x10^3u/L Lymphocytes % 31.2 (21.8-53.1) % Monocytes % 6.2 (5.3-12.2) % Eosinophils % 0.1 L (0.8-7.0) % Basophils % 0.2 (0.2-1.2) % Absolute Granulocytes 6.92 H (1.78-5.38) x10^3/uL Basophils # 0.02 (0.01-0.08) x10^3/uL Sodium (135-145) mmol/L Potassium (3.5-5.1) mmol/L Chloride (98-107) mmol/L Carbon Dioxide (22-30) mmol/L Anion Gap (5-15) MEQ/L BUN (9-20) mg/dL Creatinine (0.66-1.25) mg/dL Estimated GFR ML/MIN Glucose (74-106) mg/dL Lactic Acid 1.2 (0.4-2.0) Calcium (8.4-10.2) mg/dL Magnesium (1.6-2.3) mg/dL Total Bilirubin (0.2-1.3) mg/dL AST (17-59) U/L ALT (0-50) U/L Alkaline Phosphatase (38-126) U/L Troponin I (0.000-0.033) ng/mL NT-Pro-B Natriuret Pep (<300) pg/mL Serum Total Protein (6.3-8.2) g/dL Albumin (3.5-5.0) g/dL - Progress Progress: improved, re-examined Air Movement: good Progress Note: 05/13/24 04:50 63-year-old with COPD/pneumonia/chronic respiratory failure on 2 L oxygen since discharge yesterday, is evaluated for sudden onset chest pain which lasted for almost 10 minutes and improved with Tylenol. Patient remained chest pain-free throughout stay in the ER. EKG did not show any acute ST elevations I have given him DuoNeb and feeling better. No signs of respiratory distress, on 2 L her oxygen saturation in upper 90s. Chest x-ray showed bilateral airspace disease with confirmed pneumonia on the CT and is not any worse than that reviewed by me, pending official read. Has normal white count, chemistries fairly unremarkable and negative troponins x 2. Patient had a CTA done 2 to 3 days ago which was negative for pulmonary embolism. I believe patient can be safely discharged home with outpatient follow-up with cardiology upcoming appointment. Pain does not seem to be cardiac etiology and stable for discharge. Discussed signs symptoms of worsening needing return to ER which patient/ seem understanding. Complexity of problem addressed: Moderate acute Complexity of data reviewed/analyzed: Extensive Risk of complication/morbidity/mortality with manage condition: Low to moderate Blood Culture(s) Obtained: No Antibiotics given: No Counseled pt/family regarding: lab results, diagnosis, need for follow-up, rad results, smoking cessation Medical Desision Making - Independent Historian Additional History obtained from: Spouse - Diagnostic Testing Diagnostic test were ordered, analyzed, and reviewed by me: Yes Radiological Interpretation: Interpreted by me, Reviewed by me - Risk of complications The pt has a mod risk of morbidity or mortality based on: Need for prescription drug management - Departure Departure Disposition: Home Clinical Impression: Pneumonia, Atypical chest pain Condition: Stable Critical Care Time: No Referrals: FLORA FIGUEROA NP [Primary Care Provider] - Follow up with PCP 1 day VIVEK YARBROUGH [CONSULTING PHYSICIAN] - Follow up/PCP as directed (Call in 1 day for appointment for reevaluation) Instructions: Pneumonia, Adult (DC), Angina (DC) Additional Instructions: Continue with your current medications. Follow-up with primary care and cardiology for reevaluation. Return to ER if again having chest pain palpitations or shortness of breath
[2024-05-13 01:11] LABS: Absolute Neutrophil Ct (ANC) 6.92 x10^3/uL (1.78-5.38); BASOPHIL % 0.2 % (0.2-1.2); Basophil (Absolute #) 0.02 x10^3/uL (0.01-0.08); Eosinophil % 0.1 % (0.8-7.0); Eosinophil (Absolute #) 0.01 x10^3/uL (0.04-0.54); Hematocrit 44.6 % (40.1-51.0); Hemoglobin 15.6 g/dL (13.7-17.5); IMMATURE GRAN # 0.03 x10^3u/L (0.001-0.031); IMMATURE GRAN % 0.3 % (0.001-0.429); Lymphocyte (Absolute #) 3.48 x10^3/uL (1.32-3.57); Lymphocytes % 31.2 % (21.8-53.1); Mean Cell Volume 95.7 fL (79.0-92.2); Mean Corpuscular Hemoglobin 33.5 pg (25.7-32.2); Mean Platelet Volume 9.9 fL (9.4-12.4); Monocyte (Absolute #) 0.69 x10^3/uL (0.30-0.82); Monocytes % 6.2 % (5.3-12.2); Platelet Count 243 x10^3/uL (163-337); Red Blood Count 4.66 x10^6/uL (4.63-6.08); Red Cell Distribution Width 14.2 % (11.6-14.4); White Blood Count 11.2 x10^3/uL (4.23-9.07)
[2024-05-13 01:17] LABS: ALBUMIN 4.2 g/dL (3.5-5.0); ANION GAP 12.4 MEQ/L (5-15); BILIRUBIN,TOTAL 0.5 mg/dL (0.2-1.3); Calcium 9.1 mg/dL (8.4-10.2); Creatinine 1 0.63 mg/dL (0.66-1.25); EST GLOMERULAR FILTRATION RATE 107.6 ML/MIN; MAGNESIUM 2.2 mg/dL (1.6-2.3); Potassium 4.1 mmol/L (3.5-5.1); Total Protein 7.5 g/dL (6.3-8.2)
[2024-05-13] MEDS ORDERED: DUONEB 0.5-3 MG/3 ml Neb IH ONE (01:19)
[2024-05-13] MEDS: DUONEB 0.5-3 MG/3 ml Neb IH ONE (01:23)
[2024-05-13 01:29] LABS: NT PRO BNPII 426 pg/mL (<300); TROPONIN < 0.012 ng/mL (0.000-0.033)
[2024-05-13 05:05] VITALS: BP 123/90; PULSE 60; RESP 16
[2024-05-13 06:25] VITALS: O2SAT 96
--- NOTE | 2024-05-13 07:55 | XRAY ---
Indication: Chest pain. Status post hospital discharge for pneumonia. Comparison: August 08, 2018 Portable apical lordotic chest demonstrates new mild right infrahilar infiltrate/atelectasis and left lower lung discoid atelectasis/scarring. Remaining heart and lungs unremarkable again with a few incidental tiny calcified granulomas. Bony thorax intact again with osteopenia and mild degenerative changes.
== END 2024-05-13 05:03 | disposition home or self-care (01) ==
LOC: ED 00:27
DX: J18.9 Pneumonia, unspecified organism (principal); R07.89 Other chest pain; I10 Essential (primary) hypertension; E78.5 Hyperlipidemia, unspecified; Z79.899 Other long term (current) drug therapy; Z72.0 Tobacco use
CPT/HCPCS: 36415; 71045; 80053; 83605; 83735; 83880; 84484; 85025; 93005; 94640; 99284; 99285; A9270-GY